=== PATIENT | female | born 1950 | race Caucasian/White ===

== ENCOUNTER → 2016-10-11 | Outpatient (CLI) | payer MEDICARE, OTHER ==
--- NOTE | 2016-10-12 14:15 | MM ---
Reason for exam: screening (asymptomatic). Last mammogram was performed 1 year ago. History: Patient is postmenopausal. Family history of breast cancer in sister at age 50 and breast cancer in 2 maternal aunts. Benign excisional biopsy of the right breast, 2005. Took hormonal contraceptives for 1 year. Physical Findings: A clinical breast exam by your physician is recommended on an annual basis and results should be correlated with mammographic findings. MG 3D Screening Mammo W/Cad Bilateral CC and MLO view(s) were taken. Prior study comparison: September 27, 2015, bilateral MG 3d screening mammo w/cad. September 07, 2014, bilateral MG diagnostic mammo w CAD DARIO. August 08, 2013, bilateral digital screening mammo w/CAD. The breast tissue is heterogeneously dense. This may lower the sensitivity of mammography. Finding: There is a 17 mm mass located 3-4 cm from the nipple in the 9 o'clock position of the left breast consistent with possible cyst. New finding since September 27, 2015, September 07, 2014, and August 08, 2013. ASSESSMENT: Incomplete: need additional imaging evaluation, BI-RAD 0 RECOMMENDATION: Ultrasound of the left breast. [facility] will attempt to contact patient to return for ultrasound.
== END | disposition home or self-care (01) ==
LOC: RADMAMWWP 07:23
PROVIDERS: ATTEND Family Medicine
DX: Z12.31 Encounter for screening mammogram for malignant neoplasm of breast (principal)
CPT/HCPCS: 77063; G0202

== ENCOUNTER → 2016-10-17 | Outpatient (CLI) | payer MEDICARE, OTHER ==
--- NOTE | 2016-10-26 13:31 | USB ---
Reason for exam: additional evaluation requested from abnormal screening. History: Patient is postmenopausal. Family history of breast cancer in sister at age 50 and breast cancer in 2 maternal aunts. Benign excisional biopsy of the right breast, 2005. Took hormonal contraceptives for 1 year. Physical Findings: Nurse did not find any significant physical abnormalities on exam. US Breast Workup LT Left breast ultrasound includes all four quadrants, the retroareolar region and axilla. Finding demonstrates a 1.3 x 0.7 x 1.1cm oval, cystic lesion at 10 o'clock, benign, larger from 10/08/15 and likely corresponding to the mammographic finding. 6 month follow up mammogram can be performed. These results were verbally communicated with the patient and result sheet given to the patient on 10/17/16. ASSESSMENT: Probably benign, BI-RAD 3 RECOMMENDATION: Follow-up diagnostic mammogram of the left breast in 6 months.
== END | disposition home or self-care (01) ==
LOC: RADUSWWP 10:09
PROVIDERS: ATTEND Family Medicine
DX: R92.8 Other abnormal and inconclusive findings on diagnostic imaging of breast (principal)

== ENCOUNTER → 2017-04-24 | Outpatient (CLI) | payer MEDICARE, OTHER ==
--- NOTE | 2017-04-24 10:22 | MM ---
Reason for exam: follow-up at short interval from prior study. Last mammogram was performed 6 months ago. History: Patient is postmenopausal. Family history of breast cancer in sister at age 50 and breast cancer in 2 maternal aunts. Benign excisional biopsy of the right breast, 2005. Took hormonal contraceptives for 1 year. Physical Findings: Nurse Summary: 1cm nodule in the right axilla (nurse mj). MG 3D Diag Mammo W/Cad LT CC and MLO view(s) were taken of the left breast. Prior study comparison: October 11, 2016, bilateral MG 3d screening mammo w/cad. September 27, 2015, bilateral MG 3d screening mammo w/cad. The breast tissue is heterogeneously dense. This may lower the sensitivity of mammography. Finding #1: There is a 17 mm round mass in the left breast. Finding #2: There are typically benign round, linear calcifications in the left breast. These results were verbally communicated with the patient and result sheet given to the patient on 04/24/17. ASSESSMENT: Incomplete: need additional imaging evaluation, BI-RAD 0 RECOMMENDATION: Ultrasound. (right) (axilla palpable by nurse)
--- NOTE | 2017-04-24 10:26 | USB ---
Reason for exam: additional evaluation requested from abnormal screening. History: Patient is postmenopausal. Family history of breast cancer in sister at age 50 and breast cancer in 2 maternal aunts. Benign excisional biopsy of the right breast, 2005. Took hormonal contraceptives for 1 year. US Breast Limited RT Right breast ultrasound demonstrates a 0.6 x 0.5 x 0.3cm lesion too small to characterize at 9 o'clock, a 0.6 x 0.5 x 0.4cm mixed lesion at 9 o'clock, a 0.7 x 0.6 x 0.5cm oval lesion too small to characterize at 9 o'clock, 1cm from nipple and a 3.0 x 2.9 x 0.8cm oval lymph node at the axilla. These results were verbally communicated with the patient and result sheet given to the patient on 04/24/17. ASSESSMENT: Probably benign, BI-RAD 3 RECOMMENDATION: Ultrasound of the right breast. Manage patient on a clinical basis. Follow-up diagnostic mammogram of both breasts in 6 months. Back on schedule for October 2017.
== END | disposition home or self-care (01) ==
LOC: RADMAMWWP 08:12
PROVIDERS: ATTEND Family Medicine
DX: N60.02 Solitary cyst of left breast (principal); R92.8 Other abnormal and inconclusive findings on diagnostic imaging of breast
CPT/HCPCS: 76642; G0206; G0279

== ENCOUNTER → 2017-06-28 | Outpatient (CLI) | payer MEDICARE ==
--- NOTE | 2017-06-29 10:01 | MM ---
Reason for exam: clinical finding. Last mammogram was performed 2 months ago. History: Patient is postmenopausal. Family history of breast cancer in sister at age 50 and breast cancer in 2 maternal aunts. Benign excisional biopsy of the right breast, 2005. Took hormonal contraceptives for 1 year. Took estrogen beginning at age 66. Took progesterone for 8 years beginning at age 38. Physical Findings: Nurse Summary: 2cm nodule in the left breast at 11-12 o'clock (nurse dw). MG 3D Diag Mammo W/Cad RT CC, MLO, and ML view(s) were taken of the right breast. Prior study comparison: April 24, 2017, left breast MG 3d diag mammo w/cad LT. October 11, 2016, bilateral MG 3d screening mammo w/cad. The breast tissue is heterogeneously dense. This may lower the sensitivity of mammography. Previous mammotome biopsy in the right breast. There is chronic nodularity in the right breast. 7mm nodular asymmetry middle depth lateral to the retorareolar plane increased in size from 10/11/16, new from older priors, located at 9 o'clock. No axillary lymphadenopathy seen. These results were verbally communicated with the patient and result sheet given to the patient on 06/28/17. ASSESSMENT: Incomplete: need additional imaging evaluation, BI-RAD 0 RECOMMENDATION: Ultrasound of both breasts. (right 9 o'clock and palpable axilla, left as ordered by clinician) [facility]
--- NOTE | 2017-06-29 10:09 | USB ---
Reason for exam: additional evaluation requested from abnormal screening. History: Patient is postmenopausal. Family history of breast cancer in sister at age 50 and breast cancer in 2 maternal aunts. Benign excisional biopsy of the right breast, 2005. Took hormonal contraceptives for 1 year. Took estrogen beginning at age 66. Took progesterone for 8 years beginning at age 38. US Breast Limited BILAT Left breast ultrasound includes all four quadrants, the retroareolar region and axilla. Finding demonstrates a 1.0 x 0.9 x 0.8cm mixed, elongated possibility intraductal lesion at 4 o'clock, a 1.8 x 1.1 x 1.7cm cystic lesion with some internal debris at 10 o'clock that corresponds to the palpable and duct ectasia at the nipple. Right breast ultrasound includes all four quadrants, the retroareolar region and axilla. Finding demonstrates a 0.8 x 0.4 x 0.5cm cystic lesion at 9 o'clock, a 0.5 x 0.5 x 0.5cm mixed lesion at 9 o'clock versus 7 x 5 x 6mm previously, no definite correlate to the mammographic finding and a 2.7 x 1.1 x 2.5cm ovoid area, suspected lymph node at the axilla versus 3.0 x 0.8 x 2.9cm on 04/24/17 for which a biopsy is recommended, axillary tissue is another possibility. These results were verbally communicated with the patient and result sheet given to the patient on 06/28/17. ASSESSMENT: Suspicious, BI-RAD 4 RECOMMENDATION: Surgical consultation and stereotactic core biopsy of the right breast. (9 o'clock) Ultrasound core biopsy of both breasts. (right axilla and left 4 o'clock) (Total 3 biopsies with the decision to biopsy all [address] Yandy Singh due to a strong family history) Called with mammographic findings and has scheduled an appointment for the patient with Dr. Hudson. Stereotactic core biopsy scheduled for 07/05/17 at 8 o'clock. Ultrasound core biopsy scheduled for PRELIMINARY REPORT CALLED AND FAXED TO DR. HUDSON ON 06/29/17. [facility]
== END | disposition home or self-care (01) ==
LOC: RADMAMWWP 13:19
PROVIDERS: ATTEND Surgery
DX: R92.8 Other abnormal and inconclusive findings on diagnostic imaging of breast (principal)
CPT/HCPCS: 77065; 76642; G0279

== ENCOUNTER → 2017-07-05 | Day surgery (SDC) | payer MEDICARE ==
[2017-07-05 07:33] VITALS: RESP 16; BMI 27.4
[2017-07-05 09:06] VITALS: BP 152/71; PULSE 57; TEMP 97.5
--- NOTE | 2017-07-05 09:39 | PCN ---
PROCEDURE NOTE This patient underwent bilateral mammogram on 04/24/2017. On the mammogram, it was noted that she had dense breast tissue. In the left breast, a 17 mm round mass was noted with typically benign round linear calcifications. Right breast mammogram was not performed at that time. This mammogram was a followup mammogram for a 6 month followup. The patient subsequently was noted to have some right axillary adenopathy and recommended to have a right axillary ultrasound. She was seen for evaluation secondary to some fullness in the right breast in June 28, 2017. At that time, on physical examination of the breast, the right breast had dense breast tissue, no masses or adenopathy of concern. The left breast, no masses or adenopathy of concern. The right axilla had a 3 x 2 cm area of nodularity against latissimus dorsi. The left axilla had no masses or adenopathy of concern. From that visit, it was recommended that she have a right breast mammogram which was performed 06/28/2017, It was noted that she had a previous mammotome biopsy of the right breast with marker in place and chronic nodularity. A 7 mm nodular asymmetric area was noted lateral to the retroareolar plane which had increased in size from 10/11/2016. No axillary adenopathy of concern was noted. The patient was recommended to have an ultrasound of the right breast and axilla. The patient on 06/28/2017, underwent ultrasound of the bilateral breast and axillas. In the left breast ultrasound was performed which revealed a 1 cm elongated possibly intraductal lesion at 4 o'clock with a 1.8 cm cystic area with some internal debris at 10 o'clock. In the right breast, all 4 quadrants in the retroareolar region and axilla, she was noted to have a 0.8 cm cystic lesion at 9 o'clock, 0.5 cm cystic lesion at 9 o'clock versus 0.7 cm cystic lesion. No definite correlate to the mammographic finding and a 2.7 cm ovoid area of suspected lymph node at the axilla for which biopsy was recommended. Thus, after the bilateral mammograms were reviewed as well as bilateral ultrasounds of the breast and the axillas, recommendations for biopsy were: Ultrasound core biopsy of the right axilla and left breast at 4 o'clock and a stereotactic core biopsy of the right breast at 9 o'clock. These films were reviewed with the radiologist and physical examination of the breast was as stated. Risks and benefits of the procedures were discussed with the patient including risks of bleeding, infection, reaction to the anesthetic, risk of not sampling the correct area and the possibility that if any atypia or abnormalities of concern were found, that the patient may need to undergo surgical intervention. The alternative to core biopsies were discussed with the patient, which would be needle localization and excisional biopsy. PROCEDURE: After the above have been discussed with the patient, the patient was scheduled for stereotactic core biopsy of the right breast. The indication was a nodular area of concern in the right breast, which had increased in size from prior radiographs. The location in the breast was in the middle depth lateral to the retromolar plane at 9 o'clock. The approach used was a CC from below. The patient was placed on the stereo table. The area of concern was identified. The breast was then prepped using Betadine; 1% lidocaine with bicarb was used to anesthetize the area of concern. A 9 mm vacuum assisted needle was used and driven to the correct coordinates. Prefire films were obtained and reviewed with Radiology and the area of concern was felt to be that it would be targeted at this location once the postfire needle was in the correct location. The needle was fired and postfire films were obtained. It was felt that sampling from 2 o'clock to 9 o'clock through the 6 o'clock position would give us an adequate sample. The sampling was obtained. Following this, there were no calcifications such that the specimen was not radiographed; however, evaluation of the specimen revealed that there were some firm areas of specimen in the biopsy contents and it was felt that the area had been adequately sampled. Following this, a marker was placed. The position of the marker was documented. This was a secure raul. The stereo apparatus was removed and the secure raul was inserted and placed at the correct location. The followup plan is for the patient to follow with Dr. Hudson in 1 week. It should be noted that the patient is going to undergo ultrasound-guided core biopsy of the right axilla and the left breast tomorrow and then will follow with Dr. Rice with all the pathology results. MMODL / IJN: [id number] /
--- NOTE | 2017-07-05 22:21 | MM ---
EXAMINATION TYPE: MG stereo VAD BX RT DATE OF EXAM: 07/05/2017 COMPARISON: NONE CLINICAL HISTORY: Abnormal mammogram TECHNIQUE: Stereotactic guided core biopsy of right breast. FINDINGS: The procedure of stereotactic guided core biopsy was explained to the patient. Benefits, alternatives, and risks were discussed. An informed consent was then obtained. The shortness pathway for biopsy was chosen. Shortness pathway was inferior approach. Radiology performed the localization. The procedure was performed by Dr. Dwayne Singh. A vacuum assisted biopsy gun was used to obtain multiple core samples. The patient was kept in the radiology department for short stay after the procedure and then discharged home in stable condition. Post biopsy mammogram shows the clip to appear in satisfactory position relative to the targeted area of concern on the preprocedure images. IMPRESSION: 1. Successful stereotactic core biopsy mass within the right breast. Recommendations: 1. Recommendations are pending pathology results. Pathology Results: Benign BREAST, RIGHT SITE A, STEREOTACTIC CORE BIOPSY: FIBROCYSTIC CHANGE (STROMAL FIBROSIS, CYST FORMATION, APOCRINE METAPLASIA, ADENOSIS, DUCT HYPERPLASIA AND CALCIFICATIONS). Recommendation Follow up mammogram of the right breast and bilateral ultrasound in 6 months. (right for palpable, left for 4 o'clock) [facility]
== END ==
LOC: RADMAMWWP 07:00
PROVIDERS: ATTEND Surgery
DX: N60.31 Fibrosclerosis of right breast (principal); N60.81 Other benign mammary dysplasias of right breast; N60.21 Fibroadenosis of right breast; N60.91 Unspecified benign mammary dysplasia of right breast; R92.1 Mammographic calcification found on diagnostic imaging of breast; Z85.3 Personal history of malignant neoplasm of breast
CPT/HCPCS: 88305; 19081; A4648; J2001

== ENCOUNTER → 2017-07-06 | Day surgery (SDC) | payer MEDICARE ==
--- NOTE | 2017-07-06 11:57 | MM ---
Reason for exam: additional evaluation requested from abnormal screening. Last mammogram was performed less than 1 month ago. History: Patient is postmenopausal. Family history of breast cancer in sister at age 50 and breast cancer in 2 maternal aunts. Benign excisional biopsy of the right breast, 2005. Took hormonal contraceptives for 1 year. Took estrogen beginning at age 66. Took progesterone for 8 years beginning at age 38. MG Diagnostic Mammo LT Wo CAD CC and LM view(s) were taken of the left breast. Prior study comparison: June 28, 2017, right breast MG 3d diag mammo w/cad RT. April 24, 2017, left breast MG 3d diag mammo w/cad LT. ASSESSMENT: Post procedure mammogram for marker placement RECOMMENDATION: Ultrasound of the left breast in 6 months. PENDING PATHOLOGY RESULTS.
[2017-07-06 13:42] VITALS: BP 133/76; PULSE 60; RESP 18; TEMP 97.5; BMI 27.6
--- NOTE | 2017-07-09 10:42 | USB ---
EXAMINATION TYPE: US biopsy breast VAD LT, US discontinued breast bx RT, MG diagnostic mammo LT wo CAD DATE OF EXAM: 07/06/2017 CLINICAL HISTORY: R92.8 Abnormal mammo. Abnormal ultrasound TECHNIQUE: Ultrasound guided core biopsy of left breast with clip placement and follow-up two-view mammogram. COMPARISON: Prior ultrasound and mammogram reports. FINDINGS: Exam noted suboptimal as at time of dictation prior images were not available for direct comparison due to PACS error. The procedure of ultrasound guided core biopsy was explained to the patient. Benefits, alternatives, and risks were discussed. An informed consent was then obtained. The patient was placed in supine positioning for imaging and for the procedure. Preprocedure scanning of right axilla showed prominent tissue but no obvious worrisome mass. Preprocedure images showed elongated hypoechoic lesion with central anechoic area 4:00 position zone a left breast. The overlying skin was prepped and draped in usual sterile fashion. Lidocaine buffered with bicarbonate was used as anesthetic into the skin. Lidocaine with epinephrine is used as anesthetic into the deeper tissue up to area of concern in the left breast. Under ultrasound guidance, a 12-gauge vacuum assisted biopsy gun device was used to obtain 4 core samples. Following this, a biopsy clip was left in lesion. The patient tolerated the procedure well without any immediate complication. The patient was kept in the radiology department for short stay after the procedure and then discharged home in stable condition. Postprocedure mammogram shows successful deployment of clip. IMPRESSION: Successful, uncomplicated ultrasound guided core biopsy of area of concern in the left breast, full pathology results to follow. Low to intermediate index of suspicion noted at time of procedure. Pathology Results: Benign BREAST, LEFT, CORE BIOPSY: FIBROCYSTIC CHANGES INCLUDING FIBROSIS, CYSTS, APOCRINE METAPLASIA, ADENOSIS AND MILD USUAL TYPE DUCTAL HYPERPLASIA. PSEUDOANGIOMATOUS STROMAL HYPERPLASIA (PASH). Recommendation Follow up ultrasound of both breasts in 6 months. (right for palpable axillary, left for 4 o'clock) [facility]
== END ==
LOC: RADUSWWP 08:52
PROVIDERS: ATTEND Surgery
DX: N60.32 Fibrosclerosis of left breast (principal); N60.82 Other benign mammary dysplasias of left breast; N60.22 Fibroadenosis of left breast; N60.92 Unspecified benign mammary dysplasia of left breast; N62 Hypertrophy of breast; Z78.0 Asymptomatic menopausal state; Z80.3 Family history of malignant neoplasm of breast; Z98.890 Other specified postprocedural states
CPT/HCPCS: 88305; 77065; 19083; 76641; A4648; J2001

== ENCOUNTER → 2017-07-23 | Outpatient (CLI) | payer MEDICARE ==
--- NOTE | 2017-07-24 06:53 | US ---
EXAMINATION TYPE: US kidneys/renal and bladder DATE OF EXAM: 07/23/2017 COMPARISON: Renal ultrasound March 18, 2015. CLINICAL HISTORY: N39.0 Frequent, recurring urinary tract infection. Frequent, recurrent UTI's EXAM MEASUREMENTS: Right Kidney: 9.6 x 4.6 x 5.2 cm Left Kidney: 9.0 x 5.1 x 3.7 cm Right Kidney: no evidence of hydronephrosis or mass Left Kidney: no evidence of hydronephrosis or mass Bladder: appears wnl Bilateral Jets seen: yes There is no evidence for hydronephrosis at this point in time. No nephrolithiasis is seen. No fabi s are identified. The urinary bladder is anechoic. Bilateral ureteral jets are seen. IMPRESSION: Unremarkable study.
== END | disposition home or self-care (01) ==
LOC: RADUSWWP 16:10
PROVIDERS: ATTEND Urology
DX: N39.0 Urinary tract infection, site not specified (principal); Z88.2 Allergy status to sulfonamides
CPT/HCPCS: 76770

== ENCOUNTER → 2017-12-27 | Outpatient (CLI) | payer MEDICARE ==
--- NOTE | 2017-12-27 10:39 | MM ---
Reason for exam: additional evaluation requested from prior study. Last mammogram was performed 6 months ago. History: Patient is postmenopausal. Family history of breast cancer in sister at age 50 and breast cancer in 2 maternal aunts. Benign US biopsy breast VAD LT of the left breast, July 06, 2017. US discontinued breast bx RT of the right breast, July 06, 2017. Benign MG stereo VAD BX RT of the right breast, July 05, 2017. Benign excisional biopsy of the right breast, 2005. Took hormonal contraceptives for 1 year. Took estrogen beginning at age 66. Took progesterone for 8 years beginning at age 38. Physical Findings: Nurse Summary: 2cm adenopathy in the right axilla (nurse ts). MG 3D Diag Mammo W/Cad DARIO Bilateral CC and MLO view(s) were taken. Prior study comparison: July 06, 2017, left breast MG diagnostic mammo LT wo CAD. June 28, 2017, right breast MG 3d diag mammo w/cad RT. The breast tissue is heterogeneously dense. This may lower the sensitivity of mammography. There are similar appearing bilateral masses characterized with ultrasound the same day. Biopsy markers and post biopsy change noted. These results were verbally communicated with the patient and result sheet given to the patient on 12/27/17. ASSESSMENT: Probably benign, BI-RAD 3 RECOMMENDATION: Ultrasound of the left breast in 6 months.
--- NOTE | 2017-12-27 10:45 | USB ---
Reason for exam: follow-up at short interval from prior study. History: Patient is postmenopausal. Family history of breast cancer in sister at age 50 and breast cancer in 2 maternal aunts. Benign US biopsy breast VAD LT of the left breast, July 06, 2017. US discontinued breast bx RT of the right breast, July 06, 2017. Benign MG stereo VAD BX RT of the right breast, July 05, 2017. Benign excisional biopsy of the right breast, 2005. Took hormonal contraceptives for 1 year. Took estrogen beginning at age 66. Took progesterone for 8 years beginning at age 38. US Breast BILAT Technologist: Mellisa Rodríguez, RT (R)(M) Right complete breast ultrasound includes all four quadrants, the retroareolar region and axilla. Finding demonstrates a 6mm oval cyst and 3mm oval cyst at 9 o'clock, benign, and a 30 x 10 x 29mm echogenic lesion at axilla at BB, irregular hilum, firm on palpation for which a biopsy is recommended. Left complete breast ultrasound includes all four quadrants, the retroareolar region and axilla. Finding demonstrates a 8 x 4 x 10mm irregular, hypoechoic, solid lesion at 11/12 o'clock, a 5 x 4 x 4mm mixed lesion at 12 o'clock, a 4 x 4 x 6mm solid, hypoechoic lesion at 1 o'clock, a 4 x 3 x 3mm hypoechoic lesion at 3 o'clock and left posterior nipple prominent ducts. 6 month follow up recommended. These results were verbally communicated with the patient and result sheet given to the patient on 12/27/17. ASSESSMENT: Suspicious, BI-RAD 4 RECOMMENDATION: Ultrasound core biopsy of the right breast. (axilla) Called with mammographic findings and has scheduled an appointment for the patient for 12/28/17 at 12:[address] Zheng. Biopsy scheduled for 01/01/18 at 2:20. PRELIMINARY REPORT CALLED AND FAXED TO DR. ZHENG ON 12/27/17.
== END | disposition home or self-care (01) ==
LOC: RADMAMWWP 08:36
PROVIDERS: ATTEND Surgery
DX: R92.8 Other abnormal and inconclusive findings on diagnostic imaging of breast (principal)
CPT/HCPCS: 77066; 76641; G0279; 77062

== ENCOUNTER → 2017-12-28 | Outpatient (CLI) | payer MEDICARE ==
[2017-12-28 13:11] VITALS: BP 172/77; PULSE 62; BMI 27.4
--- NOTE | 2017-12-28 13:39 | P.GSHP ---
History of Present Illness H&P Date: 12/28/17 Patient is a 67 year old white female status post biopsies of right and left breast in June 2017. These were done stereotactically. She had bilateral mammograms and ultrasounds performed yesterday after which core biopsy of an area in the right axilla was recommended. The patient is noted to have an area of fullness under her right arm. This was present in the past however it was opted at that time to follow conservatively after review by radiology. The patient states this has not increased in size. There are no other masses or lumps in her breasts. The patient has no history of trauma. No history of infection to the breast. Family History: 1. 3 maternal aunts breast cancer, (youngest diagnosed at 80) 2. sister: breast cancer at about 50 3. brother: leukemia Past surgical history: 1. Hysterectomy secondary to dropped bladder 2. arthroscopic surgery left knee Past medical history: 1. Frequent urinary tract infections Hormonal history: Menarche: 11 Pregnancies: 2, 2 live births, patient did not breast-feed Menopause: 48 due to hysterectomy BCP: 2 years Hormones: 1 year not now Social History: smoke: started at 17 1 pack/4 days, now smoke occasional Heart: Occasional, monthly Drugs: Negative - Constitutional Constitutional: Denies chills, Denies fever - EENT Eyes: denies decreased vision, denies pain Ears: deny: decreased hearing, tinnitus Ears, nose, mouth and throat: Denies headache, Denies sore throat - Breasts Breasts: bilateral: as per HPI - Cardiovascular Cardiovascular: Denies chest pain, Denies shortness of breath - Respiratory Respiratory: Denies cough, Denies 7 - Gastrointestinal Gastrointestinal: Denies abdominal pain, Denies diarrhea, Denies nausea, Denies vomiting - Genitourinary (Female) Comment: frequant UTI follows with DR. Martinez - Menstruation Menstruation: Reports post hysterectomy - Musculoskeletal Comment: arthritis - Integumentary Integumentary: Denies pruritus, Denies rash - Neurological Neurological: Denies numbness, Denies weakness - Psychiatric Psychiatric: Denies anxiety, Denies depression - Endocrine Endocrine: Denies fatigue, Denies weight change - Hematologic/Lymphatic Comment: Aspirin 81 mg - Allergic/Immunologic Allergic/Immunologic: Reports seasonal allergies Past Medical History Past Medical History: GERD/Reflux, Hypertension, Osteoarthritis (OA), Thyroid Disorder Additional Past Medical History / Comment(s): torn cartlage lt knee,varicose vein-laser procedures completed,2012 underactive kidneys, uti's History of Any Multi-Drug Resistant Organisms: None Reported, ESBL Date of last positivie culture/infection: 12/17/17 MDRO Source:: ESBL URINE Past Surgical History: Hysterectomy, Orthopedic Surgery Additional Past Surgical History / Comment(s): Knee surgery in 2016 Past Anesthesia/Blood Transfusion Reactions: No Reported Reaction Past Psychological History: No Psychological Hx Reported Smoking Status: Current every day smoker Past Alcohol Use History: Occasional Past Drug Use History: None Reported Additional Drug Use History / Comment(s): started smoking 1979-stopped 1997 - Past Family History Mother Family Medical History: Diabetes Mellitus Additional Family Medical History / Comment(s): Tom's Father Family Medical History: Diabetes Mellitus Additional Family Medical History / Comment(s): heart problems Medications and Allergies Home Medications Medication Instructions Recorded Confirmed Type Hydrochlorothiazide 25 mg PO DAILY 11/04/15 12/27/17 History L.acidoph,Paracasei, B.lactis 1 each PO DAILY 11/04/15 12/27/17 History [Probiotic] Levothyroxine Sodium [Levoxyl] 175 mcg PO QAM 11/04/15 12/27/17 History Metoprolol Succinate [Toprol XL] 100 mg PO QAM 11/04/15 12/27/17 History Omeprazole [PriLOSEC] 20 mg PO QAM 11/04/15 12/27/17 History Cholecalciferol (Vitamin D3) 2 tab PO DAILY 07/02/17 12/27/17 History [Vitamin D3] Citalopram Hydrobromide [CeleXA] 40 mg PO DAILY 07/02/17 12/27/17 History amLODIPine BESYLATE [Norvasc] 1 each PO DAILY 07/02/17 12/27/17 History Allergies Allergy/AdvReac Type Severity Reaction Status Date / Time Sulfa (Sulfonamide Allergy Mild Rash/Hives Verified 12/27/17 10:38 Antibiotics) Surgical - Exam Vital Signs Pulse BP Pulse Ox 62 172/77 98 12/28/17 13:04 12/28/17 13:04 12/28/17 13:04 - General well developed, well nourished, no distress - Eyes normal ocular movement, no icteric - ENT no hearing loss, no congestion - Neck no masses, trachea midline - Respiratory normal respiratory effort, clear to auscultation - Cardiovascular Rhythm: regular Heart Sounds: normal: S1, S2 - Abdomen Abdomen: soft, non tender, no guarding, no rigid, no rebound - Neurologic no disoriented, no combative - Musculoskeletal normal gait, normal posture - Psychiatric oriented to time, oriented to person, oriented to place, speech is normal, memory intact Breast examination: Right breast: Multi-positional exam no dominant masses or nodules of concern Right axilla: Area of increased fullness in the axillary region this is seen on ultrasound as well and biopsy to be performed Left breast: Multi-positional exam no dominant masses or nodules of concern Left axilla: No adenopathy of concern Results Reports of mammogram and ultrasound reviewed Assessment and Plan Assessment: Impression/plan: 1. Bilateral fibrocystic breast changes 2. Right axillary fullness ultrasound core biopsy to be obtained 3. Hypothyroid Plan: 1. Core biopsy of right axillary fullness 2. Follow-up 1 week after core biopsy performed 3. Medical management of medical problems CC: Dr. Isabel Bourgeois
== END ==
LOC: WWCWWP 12:40
PROVIDERS: ATTEND Surgery
DX: Z53.9 Procedure and treatment not carried out, unspecified reason (principal)

== ENCOUNTER → 2018-01-01 | Day surgery (SDC) | payer MEDICARE ==
[2018-01-01 13:13] VITALS: RESP 16; BMI 27.4
[2018-01-01 15:15] VITALS: BP 147/71; PULSE 59; TEMP 97.8
--- NOTE | 2018-01-01 16:27 | USB ---
EXAMINATION TYPE: US breast needle core RT DATE OF EXAM: 01/01/2018 COMPARISON: NONE CLINICAL HISTORY: Palpable lump right axilla R22.9. FINDINGS: The procedure of ultrasound guided core biopsy was explained to the patient. Benefits, alt ernatives, and risks were discussed. An informed consent was then obtained. Preprocedural timeout w as performed. The patient was placed in supine positioning for imaging and for the procedure. The overlying skin wa s prepped and draped in usual sterile fashion. 10 cc of lidocaine buffered with bicarbonate was used as anesthetic into the skin and right breast. Under ultrasound guidance, a 14-gauge [employer] biopsy gun device was used to obtain 5 core samples. Fol lowing this, a hydromark biopsy marker was left in lesion. The patient tolerated the procedure well without any immediate complication. Postprocedural The patie nt was kept in the radiology department for short stay after the procedure and then discharged home i n stable condition. IMPRESSION: Successful, uncomplicated ultrasound guided core biopsy of area of concern in the right b reast, full pathology results to follow.
== END | disposition home or self-care (01) ==
LOC: RADUSWWP 12:43
PROVIDERS: ATTEND Surgery
DX: N64.1 Fat necrosis of breast (principal)
CPT/HCPCS: 19083; A4648; J2001; 88305

== ENCOUNTER → 2018-01-10 | Outpatient (CLI) | payer MEDICARE ==
[2018-01-10 08:35] VITALS: BP 156/72; PULSE 62; BMI 27.4
--- NOTE | 2018-01-10 10:03 | P.GSHP ---
History of Present Illness H&P Date: 01/10/18 The patient is a 67-year-old white female who is status post bilateral stereotactic breast biopsies approximately 6 months ago for mammographic abnormalities. These lesions were benign. The patient at that time was noted to have a fullness in her right axilla and initially we were going to proceed with a right axillary core biopsy after which as per the radiologist it was felt we would wait and follow the area in 6 months. The area did not decrease in size and repeat ultrasound there was concern that this may represent something more worrisome and an ultrasound core biopsy was recommended. Ultrasound core biopsy revealed a 3 x 2.9 cm echogenic lesion in the axilla with an irregular hilum. The biopsy results were consistent with benign fibroadipose tissue and skeletal muscle with focal fat necrosis. The patient states that the area is worrisome to her. The area is uncomfortable and she feels a fullness under her arm. And the patient is very concerned and wishes this to be removed. At this time the patient states that she believes this has increased in size as well. Family history: 1. Sister breast cancer at 50 2. 3 maternal aunts with breast cancer all postmenopausal 3. Brother: Leukemia Menarche: 11 pregnancys: 2, 2 children breast fed none, first at 19 menopause: 43 BCP: 2 years hormones: 2 years not used for about 20 years Social history: smoke: occasional alcohol: social drugs: none Past surgical history: 1. Hysterectomy 2. Left knee surgery Past medical history: 1. Hypothyroidism 2. High cholesterol 3. Hypertension - Constitutional Constitutional: Denies chills, Denies fever - EENT Eyes: denies blurred vision, denies pain Ears: deny: decreased hearing, tinnitus Ears, nose, mouth and throat: Denies headache, Denies sore throat - Breasts Breasts: bilateral: as per HPI - Cardiovascular Cardiovascular: Denies chest pain, Denies shortness of breath - Respiratory Respiratory: Denies cough, Denies 7 - Gastrointestinal Comment: GERD Gastrointestinal: Denies abdominal pain, Denies diarrhea, Denies nausea, Denies vomiting - Genitourinary (Female) Comment: UTI followed by urology - Menstruation Menstruation: Reports post hysterectomy - Musculoskeletal Comment: arthritis in knees - Integumentary Integumentary: Denies pruritus, Denies rash - Neurological Neurological: Denies numbness, Denies weakness - Psychiatric Psychiatric: Reports depression, Reports difficulty concentrating, Denies anxiety - Endocrine Comment: hyperthyroid, had radioactive ablation and now takes Synthroid - Hematologic/Lymphatic Comment: Baby aspirin - Allergic/Immunologic Comment: sulfa Past Medical History Past Medical History: GERD/Reflux, Hypertension, Osteoarthritis (OA), Thyroid Disorder Additional Past Medical History / Comment(s): torn cartlage lt knee,varicose vein-laser procedures completed,2012 underactive kidneys, uti's History of Any Multi-Drug Resistant Organisms: None Reported, ESBL Date of last positivie culture/infection: 12/17/17 MDRO Source:: ESBL URINE Past Surgical History: Hysterectomy, Orthopedic Surgery Additional Past Surgical History / Comment(s): Knee surgery in 2016 Past Anesthesia/Blood Transfusion Reactions: No Reported Reaction Past Psychological History: No Psychological Hx Reported Smoking Status: Current some day smoker Past Alcohol Use History: Occasional Past Drug Use History: None Reported Additional Drug Use History / Comment(s): started smoking 1979-stopped 1997 - Past Family History Mother Family Medical History: Diabetes Mellitus Additional Family Medical History / Comment(s): Tom's Father Family Medical History: Diabetes Mellitus Additional Family Medical History / Comment(s): heart problems Medications and Allergies Home Medications Medication Instructions Recorded Confirmed Type Hydrochlorothiazide 25 mg PO DAILY 11/04/15 01/10/18 History L.acidoph,Travisi B.lactis 1 each PO DAILY 11/04/15 01/10/18 History [Probiotic] Levothyroxine Sodium [Levoxyl] 175 mcg PO QAM 11/04/15 01/10/18 History Metoprolol Succinate [Toprol XL] 100 mg PO QAM 11/04/15 01/10/18 History Omeprazole [PriLOSEC] 20 mg PO QAM 11/04/15 01/10/18 History Cholecalciferol (Vitamin D3) 2 tab PO DAILY 07/02/17 01/10/18 History [Vitamin D3] Citalopram Hydrobromide [CeleXA] 40 mg PO DAILY 07/02/17 01/10/18 History amLODIPine BESYLATE [Norvasc] 1 each PO DAILY 07/02/17 01/10/18 History Aspirin [Adult Low Dose Aspirin EC] 81 mg PO DAILY 01/01/18 01/10/18 History Allergies Allergy/AdvReac Type Severity Reaction Status Date / Time Sulfa (Sulfonamide Allergy Mild Rash/Hives Verified 01/01/18 13:00 Antibiotics) Surgical - Exam Vital Signs Pulse BP Pulse Ox 62 156/72 99 01/10/18 08:29 01/10/18 08:29 01/10/18 08:29 - General well developed, well nourished, no distress - Eyes normal ocular movement, no icteric - ENT no hearing loss, no congestion - Neck no masses, trachea midline - Respiratory normal respiratory effort, clear to auscultation - Cardiovascular Rhythm: regular Heart Sounds: normal: S1, S2 - Abdomen Abdomen: soft, non tender, no guarding, no rigid, no rebound - Neurologic no disoriented, no combative - Musculoskeletal normal gait - Psychiatric oriented to time, oriented to person, oriented to place, speech is normal, memory intact Breast examination: Right breast: Multiple positional exam no dominant masses or nodules of concern Right axilla: Increased fullness in the right axilla approximately 3 x 3 cm in size Left breast: Multiple positional exam no dominant mass or nodules of concern Left axilla: No adenopathy of concern Results Pathology and ultrasound of right axilla reviewed Assessment and Plan Assessment: Impression/plan: 1. Right axillary mass probable lipoma based on core biopsy 2. Status post bilateral mammographic abnormalities with stereotactic biopsy results benign 3. Family history of breast cancer 4. Hypothyroidism 5. GERD 6. Arthritis in the knee Plan: 1. After conversation with the patient the right axillary mass has most likely increased in size and is worrisome to the patient. It is uncomfortable and of concern secondary to her famly history of breast cancer, she wishes this to be excised 2. Medical management of medical conditions Risk and benefit Risk and benefits of operative resection of the right axillary mass of been discussed with the patient. She wishes to proceed seen and this will be scheduled in the near future. We have also discussed the possibility of intraoperative pathologic evaluation if this were to be positive the axillary node dissection. Its of this have been discussed with the patient as well. Cc: Dr. Bourgeois
== END | disposition home or self-care (01) ==
LOC: WWCWWP 08:17
PROVIDERS: ATTEND Surgery
DX: Z53.9 Procedure and treatment not carried out, unspecified reason (principal)

== ENCOUNTER 2018-01-15 12:11 | Day surgery (SDC) | payer MEDICARE ==
[2018-01-10 14:09] VITALS: BMI 27.4
[~2018-01-15 12:11] MED LIST: DEXAMETHASONE SOD PHOSPHATE 10 MG/ML 1 ML VIAL IV ONE; HEPARIN SODIUM,PORCINE 5,000 UNIT/ML 1 ML VIAL SQ ONE; MIDAZOLAM 2 MG/2 ML VIAL IV PRN; ONDANSETRON 4 MG/2 ML VIAL IVP ONE; Pre Op ABX Message 1 EACH MISC MISCELLANE ONE; fentaNYL (PF) 50 MCG/ML 2 ML AMP IV PRN
[2018-01-15] MEDS ORDERED: LIDOCAINE 1% 20 ML VIAL (10MG/ML) FOR IV START INTRADERMA ONE (13:00)
[2018-01-15] MEDS: LACTATED RINGERS 1,000 ML IV SCH ×2 (13:01→14:50)
[2018-01-15] MEDS ORDERED: HEPARIN SODIUM,PORCINE 5,000 UNIT/ML 1 ML VIAL SQ ONE (13:43)
[2018-01-15] MEDS ORDERED: SUCCINYLCHOLINE CHLORIDE 100 MG/5 ML SYR IV ONE (14:11)
[2018-01-15] MEDS ORDERED: LIDOCAINE 1% INJ 10MG/ML (20 ML MDV) ONE (14:11)
[2018-01-15] MEDS ORDERED: MIDAZOLAM 2 MG/2 ML VIAL ONE (14:11)
[2018-01-15] MEDS ORDERED: fentaNYL (PF) 50 MCG/ML 2 ML AMP ONE (14:11)
[2018-01-15] MEDS ORDERED: PROPOFOL 10 MG/ML 20 ML VIAL IV ONE (14:11)
--- NOTE | 2018-01-15 14:56 | P.OP ---
Date of Procedure: 01/15/18 Preoperative Diagnosis: Mass right axilla Postoperative Diagnosis: Lipoma right axilla Procedure(s) Performed: Excision of soft tissue mass right axilla Anesthesia: KHANH Surgeon: Mag Hudson Estimated Blood Loss (ml): 5 IV fluids (ml): 700 Pathology: other (Soft tissue mass right axilla) Condition: stable Disposition: PACU Indications for Procedure: Enlarging soft tissue mass right axilla Operative Findings: Probable lipoma right axilla Description of Procedure: The patient was taken to the operating room and following induction of general anesthesia the right breast and axilla were prepped and draped in a sterile fashion. An incision was made over the area of palpable abnormality. It appeared that this was an intramuscular soft tissue mass. Upon opening the fibers of the muscle a lipomatous like lesion extruded from the area. This was approximately 4 x 3 cm in size. This was removed using the Harmonic scalpel. Following this after assured that hemostasis was attained the deep tissues were closed with a 3-0 Vicryl suture. The skin was closed with 4-0 Monocryl. All instrument and sponge counts were correct at the end of the case. The patient tolerated the procedure in stable condition.
--- NOTE | 2018-01-15 14:58 | P.DS ---
Providers Attending physician: Mag Hudson Primary care physician: Baldemar Bourgeois Plan - Discharge Summary New Discharge Prescriptions: No Action Levothyroxine Sodium [Levoxyl] 175 mcg PO QAM Hydrochlorothiazide 25 mg PO DAILY Metoprolol Succinate [Toprol XL] 100 mg PO QAM L.acidoph,Paracasei, B.lactis [Probiotic] 1 each PO DAILY Omeprazole [PriLOSEC] 20 mg PO QAM Cholecalciferol (Vitamin D3) [Vitamin D3] 4,000 tab PO DAILY Citalopram Hydrobromide [CeleXA] 40 mg PO QAM amLODIPine BESYLATE [Norvasc] 5 mg PO QAM Aspirin [Adult Low Dose Aspirin EC] 81 mg PO HS Atorvastatin Calcium [Lipitor] 40 mg PO HS Discharge Medication List Hydrochlorothiazide 25 mg PO DAILY 11/04/15 [History] L.acidoph,Paracasei, B.lactis [Probiotic] 1 each PO DAILY 11/04/15 [History] Levothyroxine Sodium [Levoxyl] 175 mcg PO QAM 11/04/15 [History] Metoprolol Succinate [Toprol XL] 100 mg PO QAM 11/04/15 [History] Omeprazole [PriLOSEC] 20 mg PO QAM 11/04/15 [History] Cholecalciferol (Vitamin D3) [Vitamin D3] 4,000 tab PO DAILY 07/02/17 [History] Citalopram Hydrobromide [CeleXA] 40 mg PO QAM 07/02/17 [History] amLODIPine BESYLATE [Norvasc] 5 mg PO QAM 07/02/17 [History] Aspirin [Adult Low Dose Aspirin EC] 81 mg PO HS 01/01/18 [History] Atorvastatin Calcium [Lipitor] 40 mg PO HS 01/10/18 [History] Follow up Appointment(s)/Referral(s): Mag Hudson MD [STAFF PHYSICIAN] - 1 Week Activity/Diet/Wound Care/Special Instructions: Do not drive today Discharge Disposition: HOME SELF-CARE
[2018-01-15 15:19] VITALS: TEMP 97.3
[2018-01-15 15:30] VITALS: RESP 16
[2018-01-15 17:04] VITALS: BP 128/66; PULSE 68
== END 2018-01-15 17:19 | disposition home or self-care (01) ==
LOC: OR 12:11
PROVIDERS: ATTEND Surgery
DX: D17.9 Benign lipomatous neoplasm, unspecified (principal); M79.89 Other specified soft tissue disorders; I10 Essential (primary) hypertension; E78.5 Hyperlipidemia, unspecified; Z72.0 Tobacco use; E07.9 Disorder of thyroid, unspecified; F39 Unspecified mood [affective] disorder; K21.9 Gastro-esophageal reflux disease without esophagitis; Z79.890 Hormone replacement therapy; Z79.899 Other long term (current) drug therapy; Z79.82 Long term (current) use of aspirin; Z88.2 Allergy status to sulfonamides; Z80.3 Family history of malignant neoplasm of breast; Z80.6 Family history of leukemia; E03.9 Hypothyroidism, unspecified; E78.00 Pure hypercholesterolemia, unspecified
CPT/HCPCS: 88304; J2250; J1644; J1100; J2405; J2001; J3010; J0330; J2704

== ENCOUNTER → 2018-07-30 | Outpatient (CLI) | payer MEDICARE ==
--- NOTE | 2018-07-30 09:48 | MM ---
Reason for exam: follow-up at short interval from prior study. Last mammogram was performed 7 months ago. History: Patient is postmenopausal. Family history of breast cancer in sister at age 50 and breast cancer in 2 maternal aunts. Benign US breast needle core RT of the right breast, January 01, 2018. Benign US biopsy breast VAD LT of the left breast, July 06, 2017. US discontinued breast bx RT of the right breast, July 06, 2017. Benign MG stereo VAD BX RT of the right breast, July 05, 2017. Benign excisional biopsy of the right breast, 2005. Took hormonal contraceptives for 1 year. Took estrogen beginning at age 66. Took progesterone for 8 years beginning at age 38. Physical Findings: Nurse did not find any significant physical abnormalities on exam. MG 3D Diag Mammo W/Cad DARIO Bilateral CC and MLO view(s) were taken. Prior study comparison: December 27, 2017, bilateral MG 3d diag mammo w/cad DARIO. July 06, 2017, left breast MG diagnostic mammo LT wo CAD. September 27, 2015, bilateral MG 3d screening mammo w/cad. The breast tissue is heterogeneously dense. This may lower the sensitivity of mammography. No suspicious abnormality. Bilateral biopsy markers noted. These results were verbally communicated with the patient and result sheet given to the patient on 07/30/18. ASSESSMENT: Benign, BI-RAD 2 RECOMMENDATION: Routine screening mammogram of both breasts in 1 year.
== END | disposition home or self-care (01) ==
LOC: RADMAMWWP 08:47
PROVIDERS: ATTEND Surgery
DX: R92.8 Other abnormal and inconclusive findings on diagnostic imaging of breast (principal)
CPT/HCPCS: 77066; G0279; 77062

== ENCOUNTER → 2018-08-08 | Outpatient (CLI) | payer MEDICARE ==
[2018-08-08 09:02] VITALS: BP 161/71; PULSE 85; RESP 16; TEMP 97.3; BMI 27.1
--- NOTE | 2018-08-08 09:36 | P.GSHP ---
History of Present Illness H&P Date: 08/08/18 Chief Complaint: Fibrocystic breast changes Swati is a 67-year-old white female who is status post bilateral stereotactic breast biopsies approximately 1 year ago. These lesions were benign. The patient however was then noted to have a fullness in her right axilla and initially the going to proceed with a right axillary core biopsy. However radiology felt this area could be watched and followed. The area did not decrease in size and repeat ultrasound showed concern that there may be something more worrisome in the axilla and ultrasound core biopsy was performed. The biopsy results were consistent with benign fibroadipose tissue and skeletal muscle with focal fat necrosis. The patient was concerned and we went to the operating room and remove this area. 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 The patient is doing well at this time with no new lumps or masses noted. Her most recent mammogram was a bilateral mammogram performed . This was felt to show heterogeneously dense breast tissue was benign BIRADS 2 with routine screening recommended in 1 year. Vivian Risk Evaluation: 5 year risk 3.9%, lifetime risk 11.6 % There was also been discussed with the patient and at this time she is not interested in genetic counseling nor chemoprevention. Family history: 1. sister breast cancer at 50 2. 3 maternal aunts with breast cancer all postmenopausal 3. Brother: Leukemia Menarche: 11 Pregnancies: 2, 2 children did not breast-feed first live at 19 Menopause: 43 Visit control pills: 2 years Hormones: 2 years not used for approximately 20 years Social history: Smoke: Occasional Alcohol: Social Drugs: Negative Past surgical history: 1. Hysterectomy 2. Left knee surgery Past medical history: 1. Hypothyroidism 2. High cholesterol 3. Hypertension - Constitutional Constitutional: Denies chills, Denies fever - EENT Eyes: bilateral dry eye, denies blurred vision, denies pain Ears: deny: decreased hearing, tinnitus Ears, nose, mouth and throat: Denies headache, Denies sore throat - Breasts Breasts: bilateral: as per HPI - Cardiovascular Comment: ? heart murmur Cardiovascular: Reports high blood pressure, Denies chest pain, Denies shortness of breath - Respiratory Respiratory: Denies cough, Denies 7 - Gastrointestinal Comment: GERD Gastrointestinal: Denies abdominal pain, Denies diarrhea, Denies nausea, Denies vomiting - Genitourinary (Female) Comment: bladder infection in the past now on an antibiotic and no longer a problem Genitourinary: Denies dysuria, Denies hematuria - Menstruation Comment: still has ovaries Menstruation: Reports post hysterectomy - Musculoskeletal Comment: arthritis in her knees - Integumentary Integumentary: Denies pruritus, Denies rash - Neurological Neurological: Denies numbness, Denies weakness - Psychiatric Psychiatric: Denies anxiety, Denies depression - Endocrine Comment: hypothyroid after treatment of Graves disease Endocrine: Denies fatigue, Denies weight change - Hematologic/Lymphatic Comment: baby aspirin - Allergic/Immunologic Allergic/Immunologic: Reports seasonal allergies Past Medical History Past Medical History: GERD/Reflux, Hyperlipidemia, Hypertension, Osteoarthritis (OA), Thyroid Disorder Additional Past Medical History / Comment(s): kelton lobato lt knee,varicose vein-laser procedures completed,2012 underactive kidneys, uti's History of Any Multi-Drug Resistant Organisms: None Reported, ESBL Date of last positivie culture/infection: 12/17/17 MDRO Source:: ESBL URINE Past Surgical History: Hysterectomy, Orthopedic Surgery Additional Past Surgical History / Comment(s): Knee surgery in 2016 Past Anesthesia/Blood Transfusion Reactions: No Reported Reaction Past Psychological History: No Psychological Hx Reported Smoking Status: Light tobacco smoker Past Alcohol Use History: Occasional Past Drug Use History: None Reported Additional Drug Use History / Comment(s): started smoking 1979-stopped 1997 - Past Family History Mother Family Medical History: Diabetes Mellitus Additional Family Medical History / Comment(s): Alheimer's Father Family Medical History: Diabetes Mellitus Additional Family Medical History / Comment(s): heart problems Medications and Allergies Home Medications Medication Instructions Recorded Confirmed Type L.acidoph,Paracasei, B.lactis 1 each PO QAM 11/04/15 08/08/18 History [Probiotic] Levothyroxine Sodium [Levoxyl] 175 mcg PO QAM 11/04/15 08/08/18 History Omeprazole [PriLOSEC] 20 mg PO QAM 11/04/15 08/08/18 History Cholecalciferol (Vitamin D3) 4,000 unit PO QAM 07/02/17 08/08/18 History [Vitamin D3] Citalopram Hydrobromide [CeleXA] 40 mg PO QAM 07/02/17 08/08/18 History Aspirin [Adult Low Dose Aspirin EC] 81 mg PO HS 01/01/18 08/08/18 History Atorvastatin Calcium [Lipitor] 40 mg PO HS 01/10/18 08/08/18 History Losartan Potassium 100 mg PO QAM 08/08/18 08/08/18 History Multivitamins, Thera [Multivitamin 1 tab PO QAM 08/08/18 08/08/18 History (formulary)] Niacin 500 mg PO QAM 08/08/18 08/08/18 History Trimethoprim 100 mg PO QAM 08/08/18 08/08/18 History Ubidecarenone [Co Q-10] 100 mg PO QAM 08/08/18 08/08/18 History Allergies Allergy/AdvReac Type Severity Reaction Status Date / Time Sulfa (Sulfonamide Allergy Mild Rash/Hives Verified 08/08/18 08:53 Antibiotics) Surgical - Exam Vital Signs Temp Pulse Resp BP Pulse Ox 97.3 F L 85 16 161/71 96 08/08/18 09:00 08/08/18 09:00 08/08/18 09:00 08/08/18 09:00 08/08/18 09:00 - General well developed, well nourished, no distress - Eyes normal ocular movement - ENT no hearing loss, no congestion - Neck no masses, trachea midline - Respiratory normal respiratory effort, clear to auscultation - Cardiovascular Rhythm: regular Heart Sounds: normal: S1, S2 - Abdomen Abdomen: soft - Integumentary normal turgur - Neurologic no disoriented, no combative - Musculoskeletal normal gait, normal posture - Psychiatric oriented to time, oriented to person, oriented to place, speech is normal, memory intact Breast examination: Bypass: Multi-positional exam no dominant masses or nodules of concern Right axilla: Well-healed scar from prior removal of lipoma and no evidence of adenopathy of concern Left breast: Multi-positional exam no dominant masses or nodules of concern Left axilla: No adenopathy of concern Results Mammogram report reviewed from Assessment and Plan Assessment: Impression: 1. Benign mammogram from 2. Fibrocystic breast changes 3. Family history of breast cancer 4. High risk for breast cancer 5. Hypothyroidism 6. Arthritis 7. Hypertension 8. Questionable cardiac murmur Plan: 1. Bilateral mammogram in 1 year with physician exam at that time 2. Medical management of medical conditions 3. Patient is going to have an echo related to question of a cardiac murmur will follow with primary care doctor 4. Knee replacement secondary to arthritis in the future Cc: Dr. Isabel Bourgeois
== END | disposition home or self-care (01) ==
LOC: WWCWWP 08:32
PROVIDERS: ATTEND Surgery
DX: Z53.9 Procedure and treatment not carried out, unspecified reason (principal)

== ENCOUNTER → 2018-11-07 | Outpatient (CLI) | payer MEDICARE | LOC: LABWHC1 10:25 | PROVIDERS: ATTEND Orthopaedic Surgery | DX: Z01.812 Encounter for preprocedural laboratory examination (principal) | CPT/HCPCS: 87070 ==

== ENCOUNTER 2018-11-25 11:08 | Day surgery (SDC) | payer MEDICARE ==
[2018-11-18 09:35] VITALS: BMI 27.4
--- NOTE | 2018-11-24 13:30 | HP ---
HISTORY AND PHYSICAL REASON FOR ADMISSION: Surgery 11/25/2018 HISTORY OF PRESENT ILLNESS: Swati Britton is a 68-year-old patient seen with symptomatic left knee osteoarthritis. After treatment options were discussed with her, she elected proceed with left total knee arthroplasty. Consent regarding the procedure was obtained. Medical clearance was provided by Dr. Bourgeois. PAST MEDICAL HISTORY: Hypertension, hyperlipidemia, hypothyroidism. PAST SURGICAL HISTORY: Hysterectomy. MEDICATIONS: Hydrochlorothiazide, lovastatin, metoprolol, Synthroid. ALLERGIES: None. SOCIAL HISTORY: She denies current tobacco use. PHYSICAL EXAMINATION: Evaluation of the left knee range of motion is -3 to 115 degrees. Tenderness medial joint line. Crepitus along the medial and patellofemoral compartments range of motion. Ligaments stable. Hip rotation without pain. Distal neurovascular exam intact. RADIOGRAPHS: Left knee radiographs reveal severe osteoarthritic changes. IMPRESSION: 1. Left knee osteoarthritis. 2. Hypertension. 3. Hyperlipidemia. 4. Hypothyroidism. PLAN: Left total knee arthroplasty. Surgery 11/25/2018. MMODL / IJN: [id number] /
[~2018-11-25 11:08] MED LIST changes: +ACETAMINOPHEN TAB 500 MG TAB PO ONE; -HEPARIN SODIUM,PORCINE 5,000 UNIT/ML 1 ML VIAL SQ ONE; +HYDROmorphone 0.5 MG/0.5 ML SYRINGE IVP PRN; +LACTATED RINGERS 1,000 ML IV SCH; -Pre Op ABX Message 1 EACH MISC MISCELLANE ONE; +SCOPOLAMINE 1.5MG/72HR PATCH TRANSDERM ONE; +TRANEXAMIC ACID 1,000 MG in SODIUM CHLORIDE 0.9% 100 ML IVPB ONE; +ceFAZolin IN SWFI 2 GM/20 ML SYRINGE IVP ONE; -fentaNYL (PF) 50 MCG/ML 2 ML AMP IV PRN
[2018-11-25] MEDS: MELOXICAM 7.5 MG TAB PO ONE ×2 (12:02→13:00)
[2018-11-25] MEDS ORDERED: LIDOCAINE 1% 20 ML VIAL (10MG/ML) FOR IV START INTRADERMA ONE (12:02)
[2018-11-25] MEDS ORDERED: MIDAZOLAM (PF) 2 MG/2 ML VIAL IV ONE (12:19)
[2018-11-25] MEDS ORDERED: fentaNYL (PF) 50 MCG/ML 2 ML AMP IV ONE (12:19)
[2018-11-25] MEDS ORDERED: ROPIVACAINE 246.25 MG, EPINEPHrine 0.5 MG, KETOROLAC 30 MG, cloNIDine HCL/PF 80 MCG, WA... MISCELLANE ONE ×5 (12:35)
[2018-11-25] MEDS ORDERED: ROPIVACAINE 1,100 MG, SODIUM CHLORIDE 0.9% 500 ML 330 ML MISCELLANE PRN ×2 (12:51)
--- NOTE | 2018-11-25 12:53 | P.ANPRN ---
Procedure Note - Anesthesia - Nerve Block Performed Left Adductor Canal Infusion Time Out Performed: Yes Date of Procedure: 11/25/18 Procedure Start Time: 12:18 Location of Patient Procedure: PreOp Indication: Acute Post-Operative Pain, Requested by physician Specifically requested for management of pain by DrSheila: Dwight Salmon Sedation Type: Sedate with meaningful contact maintained Preparation: Sterile Prep Position: Supine Catheter Depth at Skin (cm): 7 Catheter: Indwelling Needle Types: Pajunk Needle Gauge: 18 Technique: Ultrasound Injectate: 0.5% Ropivacaine (see comment for volume) (20) Blood Aspirated: No Pain Paresthesia on Injection Noted: No Resistance on Injection: Normal Events: Uneventful and Well Tolerated
[2018-11-25] MEDS ORDERED: TRANEXAMIC ACID 1,000 MG/10 ML VIAL ONE (13:26)
[2018-11-25] MEDS ORDERED: PROPOFOL 10 MG/ML 20 ML VIAL IV ONE (13:26)
[2018-11-25] MEDS ORDERED: fentaNYL (PF) 50 MCG/ML 2 ML AMP ONE (13:26)
[2018-11-25] MEDS ORDERED: MIDAZOLAM 2 MG/2 ML VIAL ONE (13:26)
[2018-11-25] MEDS ORDERED: SODIUM CHLORIDE 0.9% 100 ML BAG ONE (13:26)
[2018-11-25] MEDS ORDERED: LACTATED RINGERS 1,000 ML IV ONE (14:00)
[2018-11-25] MEDS ORDERED: ceFAZolin 3,000 MG in SODIUM CHLORIDE 0.9% IRRIGATIO 3,000 ML IRRIGATION ONE (14:11)
[2018-11-25] MEDS ORDERED: HYDROmorphone 0.5 MG/0.5 ML SYRINGE IVP PRN ×3 (15:37)
[2018-11-25] MEDS ORDERED: HYDROcodone/APAP 5-325MG 1 EACH TAB PO PRN (15:37)
[2018-11-25] MEDS ORDERED: ONDANSETRON 4 MG/2 ML VIAL IVP PRN (15:37)
[2018-11-25] MEDS ORDERED: NALOXONE 0.4 MG/ML 1 ML VIAL IV PRN (15:37)
--- NOTE | 2018-11-25 15:37 | P.OP ---
Date of Procedure: 11/25/18 Preoperative Diagnosis: Left knee osteoarthritis Postoperative Diagnosis: Left knee osteoarthritis Procedure(s) Performed: Left total knee arthroplasty Implants: 1. Microport evolution MP size 5 left cemented femur 2. Microport evolution size 5 left cemented tibial baseplate 3. Microport evolution size 5 MP CS 10 mm polyethylene tibial insert 4. Microport advance 35 mm all polyethylene cemented patella Anesthesia: regional (Adductor canal catheter), local, spinal Surgeon: Dwight Salmon [employer] Former #1: Win Suarez Estimated Blood Loss (ml): 40 Pathology: other (Bone) Condition: stable Disposition: PACU Indications for Procedure: 68-year-old patient seen with symptomatic left knee osteoarthritis. After treatment options were discussed, she elected to proceed with total knee arthroplasty. Operative Findings: see description of procedure Description of Procedure: Patient was taken to the operative suite after having an adductor canal catheter placed by the department of anesthesia for postoperative pain management. Patient underwent a spinal anesthetic by the department of anesthesia. Patient was given preoperative IV intake antibiotics and TXA. A well-padded tourniquet was placed about the [] lower extremity. The lower extremity was then prepped and draped in the normal sterile orthopedic fashion. The extremity was elevated, a tourniquet was insufflated to 300. A standard anterior incision was made sharply through skin. Dissection was taken down through the subcutaneous soft tissues down to the extensor mechanism. A medial arthrotomy was performed, patella was everted and knee was flexed. There was advanced osteoarthritis noted. I introduced my distal intramedullary femoral drill. I then introduced the distal femoral cutting jig. Rory PANIAGUA secured the cutting jig with 2 pins. I held retractors in position while Rory PANIAGUA performed the distal femoral resection through the guide area we now removed her distal femoral cutting guide. We now placed our 4-in-1 femoral cutting block and positioned and it was secured with 2 pins by Rory PANIAGUA while I held the block in position. The distal femoral finishing was now completed. A proximal tibial cutting guide was positioned. I held the guide in the appropriate position with both hands well Rory PANIAGUA inserted stabilizing pins into the guide. Proximal tibial cut was made. We now placed a trial femoral component into position, along with an appropriate size tibial tray and insert. We now took the knee through range of motion and had full extension good flexion and good overall soft tissue balance noted. The patella was everted and stabilized with 2 towel clips held by Rory PANIAGUA while I performed a flush with patellar quad tendon utilizing a fresh sawblade. We templated the patella, appropriate drill holes were made. An appropriate trial patella was positioned, knee was taken through full range of motion with the patella tracking very nicely. The trial patella was removed. Drill holes were made through the femoral component. All trial components were removed after marking off the appropriate rotation of the tibia. Retractors were now positioned along the proximal tibia. An appropriate keel punch was made with the appropriate size tibial guide by myself on Rory PANIAGUA assisted by holding retractors. At this point appropriate size implants were chosen and opened. The joint was irrigated copiously with pulse lavage mechanical irrigation. The posterior capsule was infiltrated with local analgesic. The wound was irrigated with pulse lavage mechanical irrigation. We mixed antibiotic methylmethacrylate. We placed the knee into flexion. We placed multiple retractors assisted by Rory PANIAGUA to expose the proximal tibia. Once the methyl methacrylate was ready, the tibial component was cemented into place removing any excess methylmethacrylate form by both myself and Rory PANIAGUA. The femoral component was cemented into place removing the removing any excess methylmethacrylate performed by both myself and Rory PANIAGUA. We then inserted the appropriate size polyethylene tibial insert. We made sure that it was locked into position. We took the knee into full extension, and then back in a flexion making sure we had removed any excess methylmethacrylate. The patellar component was then cemented down and secured with clamp. Excess methylmethacrylate removed. We kept the knee in full extension, patellar clamp in position until methylmethacrylate had hardened. Once it had hardened the patellar clamp was removed. The knee was taken through full range of motion. The patella tracked nicely. There was good soft tissue balancing. The tourniquet was now released. Additional hemostasis was achieved via electrocautery. A second gram of TXA was given. The wound again was irrigated with pulse lavage mechanical irrigation. The superficial soft tissues were infiltrated local analgesic. The extensor mechanism was repaired with Vicryl. We checked the repair with range of motion and it was stable. The subcutaneous soft tissues were repaired with Vicryl in layers. The skin was adele roximated with pernio/Dermabond. Sterile dressings were applied followed by loose web roll and Tyshawn bandage. The patient was transferred to a bed, and taken to recovery in stable and satisfactory condition. Rory PANIAGUA assisted with this complex procedure.
--- NOTE | 2018-11-25 16:06 | XR ---
Left knee Limited HISTORY: Status post left knee arthroplasty 2 views of the left knee Patient is status post left knee arthroplasty. There is anatomic alignment. Lucency in the soft tissu es compatible with postop state. Ossific densities posterior to the tibial component could possibly r epresent small loose bodies. IMPRESSION: Orthopedic follow-up. Additional findings above.
[2018-11-25] MEDS: LACTATED RINGERS 1,000 ML IV SCH (16:44)
[2018-11-25] MEDS ORDERED: SENNOSIDES-DOCUSATE SODIUM 1 EACH TAB PO SCH (21:00)
[2018-11-25] MEDS ORDERED: ATORVASTATIN 80 MG TAB PO SCH (21:00)
[2018-11-25] MEDS ORDERED: MELATONIN 1 MG TAB PO PRN (21:00)
[2018-11-25] MEDS ORDERED: TRIMETHOPRIM 100 MG TAB PO SCH (21:00)
[2018-11-25] MEDS: ceFAZolin IN SWFI 2 GM/20 ML SYRINGE IVP SCH (21:50)
--- NOTE | 2018-11-26 00:27 | CONS ---
CONSULTATION DATE OF SERVICE: 11/25/2018 REASON FOR CONSULTATION: Advice regarding hypertension and hyperlipidemia requested by Dr. Salmon. HISTORY OF PRESENT ILLNESS: This 68-year-old woman with a past medical history of GERD, hypertension, hyperlipidemia, DJD, history of thyroid disorder, history of torn cartilage, history of breast surgery being followed by Dr. Baldemar Bourgeois in the outpatient setting underwent left total knee joint arthroplasty by Dr. Salmon for severe degenerative joint disease. The patient tolerated the procedure well. No history of chest pain, palpitations, headache, loss of consciousness, nausea, diarrhea, fever, rigors, chills at this time. PAST MEDICAL HISTORY: GERD, hypertension, hyperlipidemia, history of DJD, history of ESBL, history of breast surgery. MEDICATIONS: Home medications are: 1. Multivitamins. 2. Aspirin 81 mg q.h.s. 3. Tylenol arthritis. 4. Coenzyme Q 200 mg p.o. q.h.s. 5. Trimethoprim 100 mg q.h.s. 6. Niacin 500 mg q.a.m. 7. Vitamin D3 2000 q.a.m. 8. Lipitor 80 mg q.h.s. 9. Norvasc 5 mg p.o. daily. 10.Prilosec 20 mg p.o. q.a.m. 11.Losartan 100 mg p.o. q.a.m. 12.Levothyroxine 175 mcg p.o. q.a.m. 13.Probiotic 1 p.o. b.i.d. 14.Hydrochlorothiazide 12.5 mg p.o. daily. 15.Iron sulfate 320 mg daily. 16.Seroquel 40 mg q.h.s. 17.Melatonin 2 mg q.h.s. p.r.n. ALLERGIES: SULFA. FAMILY HISTORY: History of cancer and Alzheimer's. SOCIAL HISTORY: History of smoking, continued ongoing. No history of alcohol intake. REVIEW OF SYSTEMS: ENT: No diminished vision. No diminished hearing. CARDIOVASCULAR system: No angina, palpitations. RESPIRATORY: No cough. GI mentioned earlier. : No dysuria. NERVOUS SYSTEM: No numbness or weakness. ALLERGY/IMMUNOLOGY: No asthma or hayfever. MUSCULOSKELETAL as mentioned earlier. HEMATOLOGY/ONCOLOGY: No history of anemia. ENDOCRINE: Hypothyroidism. CONSTITUTIONAL: As mentioned earlier. DERMATOLOGY: Negative. RHEUMATOLOGY: Negative. PSYCHIATRY: As mentioned earlier. PHYSICAL EXAMINATION: Alert and oriented x3. Pulse 69, blood pressure 130/52, respiration 16, temperature normal. Pulse ox 93% on room air. HEENT: Oral mucosa moist. NECK is no jugular venous distention. No carotid bruit. No lymph node enlargement. CARDIOVASCULAR system: S1, S2 muffled. RESPIRATORY: Breath sounds diminished in the bases. No rhonchi. No crackles. ABDOMEN: Soft, nontender. No mass palpable. LEGS: Status post left knee arthroplasty. NERVOUS SYSTEM: Higher functions as mentioned earlier, moves all 4 limbs. No focal motor or deficit. LYMPHATICS: No lymph nodes palpable in the neck, axillae or groin. SKIN: No ulcer, rash or bleeding. JOINTS: No active deforming arthropathy. LABS: At this time shows labs are not available. The preop labs: Hematology is normal. Chemistry shows creatinine 1.11. ASSESSMENT: 1. Status post left total knee arthroplasty. 2. Hypertension. 3. Hyperlipidemia. 4. Degenerative joint disease. 5. Hypothyroidism. 6. Gastroesophageal reflux disease. 7. History of ESBL E coli ESBL UTI. 8. History of breast surgery. 9. History of nicotine dependence. 10.Possibly chronic kidney disease stage 2. RECOMMENDATION AND DISCUSSION: In this 68-year-old woman who presented with multiple medical issues, at this time I recommend to continue current management and treatment otherwise repeat labs. DVT prophylaxis. Incentive spirometry. Will follow the patient closely and the patient may be asked to follow up with Dr. Baldemar Bourgeois closely after discharge. Thank you Dr. Salmon for letting us participate in the care of this patient. MMODL / IJN: [id number] /
[2018-11-26] MEDS: HYDROcodone/APAP 5-325MG 1 EACH TAB PO PRN ×3 (00:57→13:07)
[2018-11-26] MEDS: LACTATED RINGERS 1,000 ML IV SCH (04:33)
[2018-11-26] MEDS: ceFAZolin IN SWFI 2 GM/20 ML SYRINGE IVP SCH (05:23)
[2018-11-26] MEDS ORDERED: ENOXAPARIN 30 MG/0.3 ML SYRINGE SQ SCH (06:00)
[2018-11-26] MEDS ORDERED: LEVOTHYROXINE 75 MCG TAB PO SCH (06:30)
[2018-11-26] MEDS ORDERED: LEVOTHYROXINE 100 MCG TAB PO SCH (06:30)
[2018-11-26 07:17] VITALS: BP 145/72; PULSE 95; RESP 13; TEMP 98.2
[2018-11-26 08:30] LABS: Calcium 9.2 mg/dL (8.4-10.2); Potassium 3.7 mmol/L (3.5-5.1)
[2018-11-26 08:31] LABS: Basophils % (A) 0 %; Eosinophils % (A) 0 %; HCT 35.4 % (34.0-46.0); HGB 11.8 gm/dL (11.4-16.0); Lymphocytes # (A) 0.9 k/uL (1.0-4.8); Lymphocytes % (A) 6 %; MCH 30.4 pg (25.0-35.0); MCHC 33.4 g/dL (31.0-37.0); MCV 90.9 fL (80.0-100.0); Monocytes # (A) 1.1 k/uL (0-1.0); Monocytes % (A) 8 %; Neutrophils # (A) 12.4 k/uL (1.3-7.7); Neutrophils % (A) 85 %; Platelet Count 240 k/uL (150-450); RBC 3.89 m/uL (3.80-5.40); RDW 14.5 % (11.5-15.5); WBC 14.6 k/uL (3.8-10.6)
[2018-11-26] MEDS ORDERED: CITALOPRAM HYDROBROMIDE 20 MG TAB PO SCH (09:00)
[2018-11-26] MEDS ORDERED: LOSARTAN 50 MG TAB PO SCH (09:00)
[2018-11-26] MEDS ORDERED: PANTOPRAZOLE 40 MG TABLET PO SCH (09:00)
[2018-11-26] MEDS ORDERED: HYDROCHLOROTHIAZIDE 12.5 MG CAP PO SCH (09:00)
[2018-11-26] MEDS ORDERED: NIACIN TR 500 MG CAPLET PO SCH (09:00)
[2018-11-26] MEDS ORDERED: MELOXICAM 7.5 MG TAB PO SCH (09:00)
[2018-11-26] MEDS ORDERED: amLODIPine 5 MG TAB PO SCH (09:00)
--- NOTE | 2018-11-26 11:29 | P.PN ---
Subjective Progress Note Date: 11/26/18 Principal diagnosis: Status post left total knee arthroplasty Patient evaluated bedside today, she is resting comfortably. Pain is well- controlled. She is done well with therapy at this time. She denies any chest pain or shortness of breath. Objective - Vital Signs Vital signs: Vital Signs Temp 98.2 F 11/26/18 07:10 Pulse 95 11/26/18 07:10 Resp 13 11/26/18 07:10 BP 145/72 11/26/18 07:10 Pulse Ox 94 L 11/26/18 07:10 Intake & Output 11/25/18 11/26/18 11/26/18 18:59 06:59 18:59 Intake Total 2233 Output Total 40 Balance 2193 Intake: IV 2010 Oral 222 Output: Estimated Blood Loss 40 Other: Voiding Method Toilet Toilet # Voids 1 - Exam Left lower extremity: Incision is clean, dry, and intact. The exofin fusion tape is in good condition. There is minimal soft tissue swelling and ecchymosis surrounding the medial and lateral aspects of the incision. Calf is soft, no tenderness with palpation. Plantar flexion, dorsiflexion, EHL, FHL are intact. Sensory exam to light touch throughout the extremity is intact, dorsal pedis pulses 2+. - Labs CBC & Chem 7: 11/26/18 07:16 11/26/18 07:16 Labs: Abnormal Lab Results - Last 24 Hours (Table) 11/26/18 Range/Units 07:16 WBC 14.6 H (3.8-10.6) k/uL Neutrophils # 12.4 H (1.3-7.7) k/uL Lymphocytes # 0.9 L (1.0-4.8) k/uL Monocytes # 1.1 H (0-1.0) k/uL Assessment and Plan Plan: Assessment: Postoperative day 1 status post left total knee arthroplasty Plan: Pain control, we'll discharge home on oral medication GI and DVT prophylaxis, aspirin 81 mg twice a day Wound care instructions discussed Physical therapy and nursing of discharge Medical recommendations Patient will be discharged home today Time with Patient: Less than 30
--- NOTE | 2018-11-26 11:32 | P.DS ---
Providers Date of admission: 11/25/2018 Expected date of discharge: 11/26/18 Attending physician: Dwight Salmon Consults: 11/25/18 15:37 Consult Physician Routine Consulting Provider: Ebonie Guadarrama Consult Reason/Comments: Medical management Do you want consulting provider notified?: Yes Primary care physician: Baldemar Bourgeois [facility] Course: Date of admission: 11/25/2018 Date of discharge: 11/26/2018 Admission diagnosis: Status post left total knee arthroplasty Discharge diagnosis: Same Attending physician: Dr. Salmon Surgical procedures: Left total knee arthroplasty Brief history: Patient is a 68-year-old female with a history of progressive primary left knee osteoarthritis. At this point patient has failed conservative treatment measures and has opted to proceed with a elective left total knee arthroplasty. Hospital course: Details of patient's surgery can be found in operative report. Patient tolerated the procedure well and was subsequently transported to orthopedic floor. Patient's orthopeidc and medical care was provided daily. Patient had daily laboratory tests performed for evaluation of overall blood counts. Patient had daily physical therapy to include strengthening range of motion as well as education with walker ambulation. Patient had daily CPM usage as part of their physical therapy program. Patient was treated with Lovenox for their postoperative DVT prophylaxis during their inpatient stay. Patient was noted to have a relatively uneventful postoperative course. Patient reported satisfactory pain control with oral pain medications by postoperative day 0. Patient showed satisfactory progress with physical therapy. Patient moved steadily through the program and had no difficulty meeting the goals by postoperative day 1. Given patient's otherwise satisfactory course and having met physical therapy goals, plan is to discharge patient home on postoperative day 1. Discharge condition/disposition: Patient will be discharged home in stable condition. Discharge medications: Instructions are given on resumption of patient's normal daily medications per primary care recommendation, in addition patient will be prescribed Cascade 7.5 mg/325 mg, Colace 100 mg. Discharge instructions: 1. Wound care and infection precautions, keep incision dry and covered while showering, no lotions, creams, moisturizers. No soaking, tubs, pools, hottubs. Do not scrub over the incision. 2. Weight-bear as tolerated with walker / cane until follow-up. 3. Ice and elevate when necessary. Do not exceed 20 minutes per hour with ice pack. 4. Utilize compression sleeve until seen at first follow up appointment. 5. Visiting nursing care. 6. Home physical therapy including home CPM. 7. Pain meds and anticoagulants per prescription. 8. Pain medication has potential to cause constipation. Increase oral fluid and fiber intake. Contact primary care provider if you have not had a bowel movement within 48 hours after discharge 9. No anti-inflammatory medication until discussed at first post operative visit, this including Motrin, Aleve, Mobic, Diclofenac. 10. Follow up in office at 2 weeks postop with Rory Suarez PA-C 11. Follow up with your primary care doctor 7-10 days after discharge. 12. Contact [facility] with any questions, . Procedures: Left total knee arthroplasty Patient Condition at Discharge: Good Plan - Discharge Summary Discharge Rx Participant: Yes New Discharge Prescriptions: New Aspirin [Adult Low Dose Aspirin EC] 81 mg PO BID #60 tablet. Docusate [Colace] 100 mg PO DAILY #30 capsule HYDROcodone/APAP 7.5-325MG [Cascade 7.5] 1 - 2 each PO Q6HR PRN #40 tab PRN Reason: Pain No Action Levothyroxine Sodium [Levoxyl] 175 mcg PO QAM L.acidoph,Paracasei, B.lactis [Probiotic] 1 each PO BID Omeprazole [PriLOSEC] 20 mg PO QAM Cholecalciferol (Vitamin D3) [Vitamin D3] 2,000 unit PO QAM Citalopram Hydrobromide [CeleXA] 40 mg PO QAM Ubidecarenone [Co Q-10] 200 mg PO QAM Niacin 500 mg PO QAM Multivitamins, Thera [Multivitamin (formulary)] 1 tab PO QAM Losartan Potassium 100 mg PO QAM Trimethoprim 100 mg PO HS Hydrochlorothiazide 12.5 mg PO DAILY Atorvastatin [Lipitor] 80 mg PO HS amLODIPine [Norvasc] 5 mg PO DAILY Ferrous Sulfate [Feosol] 325 mg PO DAILY Acetaminophen [Tylenol Arthritis] 650 mg PO Q6HR PRN PRN Reason: Pain Melatonin 2 mg PO HS PRN PRN Reason: sleep Discharge Medication List L.acidoph,Paracasei, B.lactis [Probiotic] 1 each PO BID 11/04/15 [History] Levothyroxine Sodium [Levoxyl] 175 mcg PO QAM 11/04/15 [History] Omeprazole [PriLOSEC] 20 mg PO QAM 11/04/15 [History] Cholecalciferol (Vitamin D3) [Vitamin D3] 2,000 unit PO QAM 07/02/17 [History] Citalopram Hydrobromide [CeleXA] 40 mg PO QAM 07/02/17 [History] Losartan Potassium 100 mg PO QAM 08/08/18 [History] Multivitamins, Thera [Multivitamin (formulary)] 1 tab PO QAM 08/08/18 [History] Niacin 500 mg PO QAM 08/08/18 [History] Trimethoprim 100 mg PO HS 08/08/18 [History] Ubidecarenone [Co Q-10] 200 mg PO QAM 08/08/18 [History] Acetaminophen [Tylenol Arthritis] 650 mg PO Q6HR PRN 11/18/18 [History] Atorvastatin [Lipitor] 80 mg PO HS 11/18/18 [History] Ferrous Sulfate [Feosol] 325 mg PO DAILY 11/18/18 [History] Hydrochlorothiazide 12.5 mg PO DAILY 11/18/18 [History] Melatonin 2 mg PO HS PRN 11/18/18 [History] amLODIPine [Norvasc] 5 mg PO DAILY 11/18/18 [History] Aspirin [Adult Low Dose Aspirin EC] 81 mg PO BID #60 tablet. 11/26/18 [Rx] Docusate [Colace] 100 mg PO DAILY #30 capsule 11/26/18 [Rx] HYDROcodone/APAP 7.5-325MG [Cascade 7.5] 1 - 2 each PO Q6HR PRN #40 tab 11/26/18 [Rx] Follow up Appointment(s)/Referral(s): [facility], [NON-STAFF] - As Needed Baldemar Bourgeois DO [Primary Care Provider] - 12/04/18 2:45 pm Win Suarez PAC [PHYSICIAN CEMENT DESPATCH OPERATOR] - 12/11/18 10:00 am Patient Instructions/Handouts: *[facility] - On-Q Pain Pump Discharge Instructions, Knee Replacement (DC) Activity/Diet/Wound Care/Special Instructions: Orthopedic Discharge Instructions: 1. Wound care and infection precautions, keep incision dry and covered while showering, no lotions, creams, moisturizers. No soaking, pools, hot tubs. Do not scrub over incision. 2. Weight-bear as tolerated with walker / cane until follow-up. 3. Ice and elevate when necessary. Do not exceed 20 minutes per hour with ice pack. 4. Utilize compression sleeve until seen at first follow up appointment. 5. Pain meds and anticoagulants per prescription. 6. Pain medication has potential to cause constipation. Increase oral fluid and fiber intake. Contact primary care provider if you have not had a bowel movement within 48 hours after discharge. 7. No anti-inflammatory medication until discussed at first post operative visit, this including Motrin, Aleve, Mobic, Diclofenac. 8. Follow up in office at 2 weeks postop with Rory Suarez PA-C 9. Follow up with your primary care doctor 7-10 days after discharge. 10. Contact [facility] with any questions, . Discharge Disposition: HOME WITH HOME HEALTH SERVICES
--- NOTE | 2018-11-26 16:34 | PN ---
PROGRESS NOTE DATE OF SERVICE: 11/26/2018 This 68-year-old woman was admitted after left total knee surgery is improving significantly. No chest pain. No palpitations. No fever. EXAM: Alert and oriented times three. Pulse 95. Blood pressure 144/72, respirations 18, temperature 98.2, pulse ox 94% on room air. HEENT: Conjunctivae normal. NECK: No jugular venous distention. CARDIOVASCULAR: S1, S2 muffled. RESPIRATIONS: Breath sounds diminished in the bases. No rhonchi. No crackles. ABDOMEN: Soft. LEGS: Status post left knee surgery. NERVOUS SYSTEM: No focal deficits. LABS: WBC 14.6. ASSESSMENT: 1. Bronchial asthma acute exacerbation with acute purulent tracheobronchitis. 2. Increased WBC possibly reactive. 3. Asthma history. 4. History of fibromyalgia. 5. Sleep apnea. 6. Glaucoma. 7. History of degenerative joint disease. 8. History of anxiety, depression. 9. History of nerve stimulator. 10.History of knee replacements. RECOMMENDATIONS AND DISCUSSION: Recommend to continue current medications, management and symptomatic treatment. Otherwise patient will be slated for discharge. Recommend to continue the home medications. Closely follow with primary physician in the outpatient setting. Otherwise further recommendations to follow. Thank you Dr. Salmon. MMODL / IJN: [id number] /
== END 2018-11-26 15:36 | disposition home health service (06) ==
LOC: OR 11:08 → 4SSUR 16:53 → OR 11-26 15:36
PROVIDERS: ATTEND Orthopaedic Surgery
DX: M17.12 Unilateral primary osteoarthritis, left knee (principal); I10 Essential (primary) hypertension; E78.5 Hyperlipidemia, unspecified; E03.9 Hypothyroidism, unspecified; Z90.710 Acquired absence of both cervix and uterus; K21.9 Gastro-esophageal reflux disease without esophagitis; F17.200 Nicotine dependence, unspecified, uncomplicated; Z16.12 Extended spectrum beta lactamase (ESBL) resistance; Z86.19 Personal history of other infectious and parasitic diseases; J45.901 Unspecified asthma with (acute) exacerbation; M79.7 Fibromyalgia; G47.30 Sleep apnea, unspecified; H40.9 Unspecified glaucoma; F41.9 Anxiety disorder, unspecified; F32.9 Major depressive disorder, single episode, unspecified; F39 Unspecified mood [affective] disorder; Z79.890 Hormone replacement therapy; Z79.899 Other long term (current) drug therapy; Z88.2 Allergy status to sulfonamides
CPT/HCPCS: 27447; 97161; 64448; 80048; 85025; 88300; 73560; C1776; C1713; C1772; J2250 ×2; J0171; J1100; J2405; J0690 ×3; J3010; J1885; J1650; J2795; J2704; J0735

== ENCOUNTER → 2019-08-04 | Outpatient (CLI) | payer MEDICARE ==
--- NOTE | 2019-08-05 11:56 | MM ---
Reason for exam: screening (asymptomatic). Last mammogram was performed 1 year ago. History: Patient is postmenopausal. Family history of breast cancer in sister at age 50 and breast cancer in 2 maternal aunts. Benign US breast needle core RT of the right breast, January 01, 2018. Benign US biopsy breast VAD LT of the left breast, July 06, 2017. US discontinued breast bx RT of the right breast, July 06, 2017. Benign MG stereo VAD BX RT of the right breast, July 05, 2017. Benign excisional biopsy of the right breast, 2005. Took hormonal contraceptives for 1 year. Took estrogen beginning at age 66. Took progesterone for 8 years beginning at age 38. Physical Findings: A clinical breast exam by your physician is recommended on an annual basis and results should be correlated with mammographic findings. MG 3D Screening Mammo W/Cad Bilateral CC and MLO view(s) were taken. Prior study comparison: July 30, 2018, bilateral MG 3d diag mammo w/cad DARIO. December 27, 2017, bilateral MG 3d diag mammo w/cad DARIO. The breast tissue is heterogeneously dense. This may lower the sensitivity of mammography. There are benign appearing stable right upper outer quadrant masses and decreased size of left masses. No suspicious abnormality. Bilateral biopsy markers. No significant changes when compared with prior studies. ASSESSMENT: Benign, BI-RAD 2 RECOMMENDATION: Routine screening mammogram of both breasts in 1 year.
== END | disposition home or self-care (01) ==
LOC: RADMAMWWP 08:33
PROVIDERS: ATTEND Family Medicine
DX: Z12.31 Encounter for screening mammogram for malignant neoplasm of breast (principal)
CPT/HCPCS: 77063; 77067

== ENCOUNTER → 2020-10-12 | Outpatient (CLI) | payer MEDICARE, OTHER ==
--- NOTE | 2020-10-13 10:21 | MM ---
Reason for exam: screening (asymptomatic). Last mammogram was performed 1 year and 2 months ago. History: Patient is postmenopausal. Family history of breast cancer in sister at age 50 and breast cancer in 2 maternal aunts. Benign US breast needle core RT of the right breast, January 01, 2018. Benign US biopsy breast VAD LT of the left breast, July 06, 2017. US discontinued breast bx RT of the right breast, July 06, 2017. Benign MG stereo VAD BX RT of the right breast, July 05, 2017. Benign excisional biopsy of the right breast, 2005. Took hormonal contraceptives for 1 year. Took estrogen beginning at age 66. Took progesterone for 8 years beginning at age 38. Physical Findings: A clinical breast exam by your physician is recommended on an annual basis and results should be correlated with mammographic findings. MG 3D Screening Mammo W/Cad Bilateral CC and MLO view(s) were taken. Prior study comparison: August 04, 2019, bilateral MG 3d screening mammo w/cad. July 30, 2018, bilateral MG 3d diag mammo w/cad DARIO. The breast tissue is heterogeneously dense. This may lower the sensitivity of mammography. Previous mammotome biopsy in the right breast. Stable benign calcifications. No significant changes when compared with prior studies. ASSESSMENT: Benign, BI-RAD 2 RECOMMENDATION: Routine screening mammogram of both breasts in 1 year.
== END | disposition home or self-care (01) ==
LOC: RADMAMWWP 09:45
PROVIDERS: ATTEND Family Medicine
DX: Z12.31 Encounter for screening mammogram for malignant neoplasm of breast (principal); Z80.3 Family history of malignant neoplasm of breast; Z78.0 Asymptomatic menopausal state
CPT/HCPCS: 77063; 77067

== ENCOUNTER → 2021-02-03 | Outpatient (CLI) | payer MEDICARE, OTHER | END | disposition home or self-care (01) | LOC: LABWHC1 11:50 | PROVIDERS: ATTEND Orthopaedic Surgery | DX: Z01.812 Encounter for preprocedural laboratory examination (principal) | CPT/HCPCS: 87070 ==

== ENCOUNTER → 2021-02-03 | Outpatient (CLI) | payer MEDICARE, OTHER ==
[2021-02-03 12:41] LABS: Creatinine,Urine Random 167.8 mg/dL; Protein/Creatinine Ratio,Urine 0.03
[2021-02-03 19:00] LABS: Basophils # (A) 0.03 X 10*3/uL (0.00-0.10); Basophils % (A) 0.4 %; Eosinophils # (A) 0 X 10*3/uL (0.04-0.35); Eosinophils % (A) 0 %; HCT 42.8 % (37.2-46.3); Lymphocytes # (A) 1.35 X 10*3/uL (0.90-5.00); Lymphocytes % (A) 16.2 %; MCH 30.4 pg (27.0-32.0); MCHC 32.7 g/dL (32.0-37.0); Mean Platelet Volume 10.8 fL (9.5-12.2); Monocytes # (A) 0.84 X 10*3/uL (0.20-1.00); Monocytes % (A) 10.1 %; Neutrophils % (A) 72.9 %; Platelet Count 291 X 10*3/uL (140-440); RDW 13.3 % (11.5-14.5); WBC 8.35 X 10*3/uL (4.50-10.00)
[2021-02-03 20:11] LABS: % Iron Saturation 21.67 (12.00-45.00); African American GFR (CKD) 52.3 (60.0-200.0); Anion Gap 9.8 mmol/L (4.00-12.00); BUN/Creat Ratio 10.83 Ratio (12.00-20.00); Calcium 10.1 mg/dL (8.7-10.3); Carbon Dioxide 27.2 mmol/L (21.6-31.8); Non-African American GFR(CKD) 45.1 (60.0-200.0); Potassium 4.3 mmol/L (3.5-5.5)
[2021-02-03 20:19] LABS: Ferritin 103.4 ng/mL (10.0-291.0)
== END | disposition home or self-care (01) ==
LOC: LABWHC1 11:48
PROVIDERS: ATTEND Nurse Practitioner Family
DX: N18.30 Chronic kidney disease, stage 3 unspecified (principal); D64.9 Anemia, unspecified; R80.9 Proteinuria, unspecified
CPT/HCPCS: 36415; 80048; 82570; 82728; 83540; 83550; 84156; 85025

== ENCOUNTER → 2021-05-12 | Outpatient (CLI) | payer MEDICARE, OTHER | END | disposition home or self-care (01) | LOC: LABWHC1 09:11 | PROVIDERS: ATTEND Surgery Plastic and Reconstructive Surgery | DX: I11.9 Hypertensive heart disease without heart failure (principal) | CPT/HCPCS: 36415; 93005 ==

== ENCOUNTER → 2021-07-26 | Outpatient (CLI) | payer MEDICARE, OTHER ==
[2021-07-27 12:47] LABS: Coronavirus SARS CoV-2 Detected (Not Detected)
== END | disposition home or self-care (01) ==
LOC: LABPAT 10:20
PROVIDERS: ATTEND Surgery Plastic and Reconstructive Surgery
DX: Z03.818 Encounter for observation for suspected exposure to other biological agents ruled out (principal)

== ENCOUNTER → 2021-08-16 | Outpatient (CLI) | payer MEDICARE, OTHER ==
[2021-08-16 12:29] LABS: Creatinine,Urine Random 143.8 mg/dL; Protein/Creatinine Ratio,Urine 0.07
[2021-08-16 17:52] LABS: Basophils # (A) 0.06 X 10*3/uL (0.00-0.10); Basophils % (A) 0.8 %; Eosinophils # (A) 0.18 X 10*3/uL (0.04-0.35); Eosinophils % (A) 2.4 %; HCT 44.2 % (37.2-46.3); HGB 14.1 g/dL (12.0-15.0); Immature Grans, Automated 0.3 %; Lymphocytes # (A) 1.46 X 10*3/uL (0.90-5.00); Lymphocytes % (A) 19.3 %; MCHC 31.9 g/dL (32.0-37.0); Mean Platelet Volume 10.5 fL (9.5-12.2); Monocytes # (A) 0.86 X 10*3/uL (0.20-1.00); Monocytes % (A) 11.3 %; NRBC Per 100 WBC 0 /100 WBCS (0.0-0.0); Neutrophils % (A) 65.9 %; Platelet Count 322 X 10*3/uL (140-440); RDW 13.5 % (11.5-14.5); WBC 7.58 X 10*3/uL (4.50-10.00)
[2021-08-16 18:05] LABS: % Iron Saturation 25.29 (12.00-45.00); African American GFR (CKD) 58.1 (60.0-200.0); Anion Gap 12.3 mmol/L (10.00-18.00); BUN/Creat Ratio 10.27 Ratio (12.00-20.00); Blood Urea Nitrogen 11.3 mg/dL (9.0-27.0); Calcium 9.7 mg/dL (8.7-10.3); Carbon Dioxide 24.7 mmol/L (20.0-27.5); Magnesium 2.2 mg/dL (1.5-2.4); Non-African American GFR(CKD) 50.1 (60.0-200.0); Phosphorus 3.2 mg/dL (2.4-5.1); Potassium 4.6 mmol/L (3.5-5.5); Uric Acid 5.4 mg/dL (2.9-7.7)
[2021-08-16 20:14] LABS: Appearance,Urine Turbid (Clear); Bacteria,Urine 4+ /HPF (None Seen); Bilirubin,Urine Negative (Negative); Blood,Urine Trace (Negative); Color,Urine Yellow (Yellow); Ketones,Urine Trace mg/dL (Negative); Leukocyte Esterase,Urine Moderate (Negative); Nitrite,Urine Positive (Negative); PH, Urine 6.5 (5.0-8.0); Protein,Urine Trace (Negative); RBC,Urine 0-2 /HPF (0-2); Specific Gravity,Urine 1.023 (1.001-1.030); Urobilinogen,Urine 0.2 (0.2,1.0); WBC,Urine >100 /HPF (0-5)
[2021-08-16 22:54] LABS: Albumin 4.4 g/dL (3.8-4.9)
== END | disposition home or self-care (01) ==
LOC: LABWHC1 11:06
PROVIDERS: ATTEND Internal Medicine Nephrology
DX: N18.31 Chronic kidney disease, stage 3a (principal); E55.9 Vitamin D deficiency, unspecified; N25.81 Secondary hyperparathyroidism of renal origin; M10.9 Gout, unspecified; N39.0 Urinary tract infection, site not specified; D64.9 Anemia, unspecified; R80.9 Proteinuria, unspecified
CPT/HCPCS: 36415; 80048; 81001; 82040; 82306; 82570; 82728; 83540; 83550; 83735; 83970; 84100; 84156; 84550; 85025

== ENCOUNTER 2021-08-19 07:21 | Day surgery (SDC) | payer MEDICARE, OTHER ==
[2021-07-26 15:30] VITALS: BMI 25.4
--- NOTE | 2021-08-19 01:05 | P.GSHP ---
History of Present Illness H&P Date: 08/19/21 CHIEF COMPLAINT: Right buttock mass HISTORY OF PRESENT ILLNESS: The patient is a 70 year-old female with mass along the right buttock over 3 months which is painful to touch. She presents today for surgical excision. PAST MEDICAL HISTORY: Please see list. PAST SURGICAL HISTORY: Please see list. MEDICATIONS: Please see list. ALLERGIES: Please see list. SOCIAL HISTORY: Please see list. FAMILY HISTORY: No reports of Crohn disease or ulcerative colitis. REVIEW OF ORGAN SYSTEMS: CONSTITUTIONAL: No reports of fevers or chills. GI: Denies any blood in stools or constipation. PHYSICAL EXAM: VITAL SIGNS: Stable Musculoskeletal: No clubbing cyanosis or edema SKIN: Buttock mass 3 cm, right GENERAL: Well developed and in no acute distress. Pleasant. HEENT: No sclera icterus. Extraocular movements grossly intact. Moist buccal mucosa. Head is atraumatic, normocephalic. Hears conversational speech. No nasal drainage. NECK: Supple without lymphadenopathy. No JV distention. CHEST: Non-labored respirations and equal bilateral excursions. CARDIOVASCULAR: Regular rate and rhythm. Palpable 2+ radial pulses. ABDOMEN: Soft. Non-tender. Nondistended. NEUROLOGIC: No focal or lateralizing signs. PSYCH: Appropriate affect. Alert and oriented to person, place and time. ASSESSMENT: 1. Right buttock mass PLAN: 1. Will proceed of excision of subcutaneous tumor along the right buttock 2. DVT prophylaxis. 3. Antibiotic prophylaxis. 4. Time of recovery, at least one week. Past Medical History Past Medical History: GERD/Reflux, Hyperlipidemia, Hypertension, Osteoarthritis (OA), Renal Disease, Thyroid Disorder Additional Past Medical History / Comment(s): varicose veins-had lasering, decreased kidney function, Grave's disease History of Any Multi-Drug Resistant Organisms: None Reported, ESBL Date of last positivie culture/infection: 12/17/17 MDRO Source:: ESBL URINE Past Surgical History: Hysterectomy, Joint Replacement, Orthopedic Surgery Additional Past Surgical History / Comment(s): Knee surgery in 2016, left knee replaced Past Anesthesia/Blood Transfusion Reactions: No Reported Reaction Smoking Status: Current some day smoker - Past Family History Mother Family Medical History: Diabetes Mellitus Additional Family Medical History / Comment(s): Tom's Father Family Medical History: Diabetes Mellitus Additional Family Medical History / Comment(s): heart problems Brother(s) Family Medical History: Cancer Sister(s) Family Medical History: Cancer, Pulmonary Embolus Medications and Allergies Home Medications Medication Instructions Recorded Confirmed Type Jose Razo B.lactis 1 each PO DAILY 11/04/15 08/17/21 History [Probiotic] Levothyroxine Sodium [Levoxyl] 175 mcg PO QAM 11/04/15 08/17/21 History Omeprazole [PriLOSEC] 20 mg PO QAM 11/04/15 08/17/21 History Cholecalciferol (Vitamin D3) 2,000 unit PO QAM 07/02/17 08/17/21 History [Vitamin D3] Losartan Potassium 100 mg PO QAM 08/08/18 08/17/21 History Multivitamins, Thera [Multivitamin 1 tab PO QAM 08/08/18 08/17/21 History (formulary)] Niacin 500 mg PO QAM 08/08/18 08/17/21 History Ubidecarenone [Co Q-10] 200 mg PO QAM 08/08/18 08/17/21 History Acetaminophen [Tylenol Arthritis] 650 mg PO Q6HR PRN 11/18/18 08/17/21 History Atorvastatin [Lipitor] 80 mg PO HS 11/18/18 08/17/21 History Hydrochlorothiazide 12.5 mg PO DAILY 11/18/18 08/17/21 History [hydroCHLOROthiazide] Melatonin 2 mg PO HS PRN 11/18/18 08/17/21 History amLODIPine [Norvasc] 10 mg PO DAILY 11/18/18 08/17/21 History Aspirin [Adult Low Dose Aspirin EC] 81 mg PO DAILY 07/26/21 08/17/21 History Calcium Carbonate/Vitamin D3 1 each PO DAILY 07/26/21 08/17/21 History [Calcium 600 mg-D3 10 Mcg (400 Iu)] Metoprolol Succinate [Toprol XL] 25 mg PO DAILY 07/26/21 08/17/21 History Venlafaxine HCl ER [Effexor Xr] 75 mg PO DAILY 07/26/21 08/17/21 History Allergies Allergy/AdvReac Type Severity Reaction Status Date / Time Sulfa (Sulfonamide Allergy Mild Rash/Hives Verified 08/17/21 15:57 Antibiotics)
[~2021-08-19 07:21] MED LIST changes: -ACETAMINOPHEN TAB 500 MG TAB PO ONE; +ACETAMINOPHEN TAB 500 MG TAB PO PRN; -DEXAMETHASONE SOD PHOSPHATE 10 MG/ML 1 ML VIAL IV ONE; +DEXAMETHASONE SOD PHOSPHATE 4 MG/ML 1 ML VIAL IV ONE; +GABAPENTIN 300 MG CAP PO PRN; +HEPARIN SODIUM,PORCINE/PF 5,000 UNIT/0.5 ML SYRINGE SQ PRN; -HYDROmorphone 0.5 MG/0.5 ML SYRINGE IVP PRN; +MELOXICAM 7.5 MG TAB PO PRN; -MIDAZOLAM 2 MG/2 ML VIAL IV PRN; +Pre Op ABX Message 1 EACH MISC MISCELLANE ONE; -SCOPOLAMINE 1.5MG/72HR PATCH TRANSDERM ONE; -TRANEXAMIC ACID 1,000 MG in SODIUM CHLORIDE 0.9% 100 ML IVPB ONE; -ceFAZolin IN SWFI 2 GM/20 ML SYRINGE IVP ONE
[2021-08-19] MEDS ORDERED: HEPARIN SODIUM,PORCINE/PF 5,000 UNIT/0.5 ML SYRINGE SQ ONE (08:03)
[2021-08-19] MEDS ORDERED: LIDOCAINE 1% INJ 10MG/ML (20 ML MDV) ONE (08:47)
[2021-08-19] MEDS ORDERED: fentaNYL (PF) 50 MCG/ML 2 ML AMP ONE (08:47)
[2021-08-19] MEDS ORDERED: PROPOFOL 10 MG/ML 20 ML VIAL IV ONE (08:47)
[2021-08-19] MEDS ORDERED: MIDAZOLAM 2 MG/2 ML VIAL ONE (08:47)
[2021-08-19] MEDS ORDERED: PHENYLEPHRINE-0.9% NACL SYG 1,000 MCG/10 ML SYRINGE ONE (08:47)
[2021-08-19] MEDS ORDERED: ROCURONIUM 10 MG/ML (5 ML VIAL) IV ONE (08:47)
[2021-08-19] MEDS ORDERED: SUCCINYLCHOLINE CHLORIDE 100 MG/5 ML SYR IV ONE (08:47)
[2021-08-19] MEDS ORDERED: BUPIVACAIN-EPI 0.25%-1:200,000 30 ML VIAL SQ ONE (09:20)
[2021-08-19 09:47] VITALS: TEMP 97
[2021-08-19 09:51] VITALS: RESP 16
--- NOTE | 2021-08-19 09:53 | P.OP ---
Date of Procedure: 08/19/21 Description of Procedure: SURGEON: SHEYLA CAMERON MD ELECTRICAL ENGINEERING DRAFTSPERSON: None. PREOPERATIVE DIAGNOSES: 1. Right upper buttock mass 2. Hypertensive heart disease 3. Depressive disorder 4. Hyperlipidemia 5. Hypothyroidism 6. Gastroesophageal reflux disease POSTOPERATIVE DIAGNOSES: 1. Right upper buttock mass, 6-cm 2. Hypertensive heart disease 3. Depressive disorder 4. Hyperlipidemia 5. Hypothyroidism 6. Gastroesophageal reflux disease PROCEDURES PERFORMED: 1. Excision of deep subcutaneous right buttock tumor, 5-cm 2. Intermediate closure right buttock incision, 6 -cm Anesthesia: GETA, local Estimated Blood Loss (ml): 5 Pathology: 1. Right buttock mass Condition: stable Disposition: Same-day COMPLICATIONS: None. Operative Findings: 1. Subcutaneous tumor right buttock, 5 cm a fatty consistency, lipoma INDICATIONS: The patient is a 70-year-old female who presents over 6 months with increasing pain and tenderness of right lower back, right upper buttock tumor. Benefits and risks of surgical intervention were described including bleeding, infection, seroma, pain, wound dehiscence and recurrence. Informed consent was obtained. DESCRIPTION OR PROCEDURE: Patient was brought into the operating room. After general induction, the patient was positioned in left lateral decubitus. The buttock was draped in a standard sterile fashion with Betadine. Timeout protocol was confirmed with the surgical team regarding the patient's name, procedure to be performed including preoperative medications. DVT prophylaxis was confirmed. A field block was placed with local anesthetic. A 6-cm transverse incision using #15 blade was made along the marking into the dermis and subcutaneous tissue. Electro-Bovie cautery was used to enter deep into the subcutaneous tissue of the right buttock tumor over 5 cm evaginated out of the wound. The tumor was excised in total. 0 Vicryl for the fascia and deep subcutaneous tissue followed 4-0 monocyl along the subcutaneous tissue was performed. Final length incisional closure is 6-cm. The skin was cleansed and Exofin tape with liquid glue was applied for a third layer closure. The incision was covered with Optifoam dressing. At the end of the procedure, needle, sponge, and instrument count was verified correct by surgical services asst. The patient was transferred into the postanesthesia care unit in stable condition. Plan - Discharge Summary Discharge Rx Participant: Yes New Discharge Prescriptions: New Ibuprofen [Motrin] 600 mg PO Q8HR PRN #30 tab PRN Reason: Pain Continue Levothyroxine Sodium [Levoxyl] 175 mcg PO QAM L.acidoph,Paracasei, B.lactis [Probiotic] 1 each PO DAILY Omeprazole [PriLOSEC] 20 mg PO QAM Cholecalciferol (Vitamin D3) [Vitamin D3] 2,000 unit PO QAM Ubidecarenone [Co Q-10] 200 mg PO QAM Niacin 500 mg PO QAM Multivitamins, Thera [Multivitamin (formulary)] 1 tab PO QAM Losartan Potassium 100 mg PO QAM Hydrochlorothiazide [hydroCHLOROthiazide] 12.5 mg PO DAILY Atorvastatin [Lipitor] 80 mg PO HS amLODIPine [Norvasc] 10 mg PO DAILY Acetaminophen [Tylenol Arthritis] 650 mg PO Q6HR PRN PRN Reason: Pain Melatonin 2 mg PO HS PRN PRN Reason: sleep Aspirin [Adult Low Dose Aspirin EC] 81 mg PO DAILY Calcium Carbonate/Vitamin D3 [Calcium 600 mg-D3 10 Mcg (400 Iu)] 1 each PO DAILY Metoprolol Succinate [Toprol XL] 25 mg PO DAILY Venlafaxine HCl ER [Effexor XR] 75 mg PO DAILY Discharge Medication List L.acidoph,Paracasei, B.lactis [Probiotic] 1 each PO DAILY 11/04/15 [History] Levothyroxine Sodium [Levoxyl] 175 mcg PO QAM 11/04/15 [History] Omeprazole [PriLOSEC] 20 mg PO QAM 11/04/15 [History] Cholecalciferol (Vitamin D3) [Vitamin D3] 2,000 unit PO QAM 07/02/17 [History] Losartan Potassium 100 mg PO QAM 08/08/18 [History] Multivitamins, Thera [Multivitamin (formulary)] 1 tab PO QAM 08/08/18 [History] Niacin 500 mg PO QAM 08/08/18 [History] Ubidecarenone [Co Q-10] 200 mg PO QAM 08/08/18 [History] Acetaminophen [Tylenol Arthritis] 650 mg PO Q6HR PRN 11/18/18 [History] Atorvastatin [Lipitor] 80 mg PO HS 11/18/18 [History] Hydrochlorothiazide [hydroCHLOROthiazide] 12.5 mg PO DAILY 11/18/18 [History] Melatonin 2 mg PO HS PRN 11/18/18 [History] amLODIPine [Norvasc] 10 mg PO DAILY 11/18/18 [History] Aspirin [Adult Low Dose Aspirin EC] 81 mg PO DAILY 07/26/21 [History] Calcium Carbonate/Vitamin D3 [Calcium 600 mg-D3 10 Mcg (400 Iu)] 1 each PO DAILY 07/26/21 [History] Metoprolol Succinate [Toprol XL] 25 mg PO DAILY 07/26/21 [History] Venlafaxine HCl ER [Effexor XR] 75 mg PO DAILY 07/26/21 [History] Ibuprofen [Motrin] 600 mg PO Q8HR PRN #30 tab 08/19/21 [Rx] Follow up Appointment(s)/Referral(s): Sheyla Cameron MD [STAFF PHYSICIAN] - 08/25/21 Patient Instructions/Handouts: *[facility] - Managing Your Pain After Surgery Without Opioids, Excision of Skin Lesion (GEN) Activity/Diet/Wound Care/Special Instructions: NO EXTREME STRETCHING OF THE BACK See instructions on dressing. DO NOT REMOVE DRESSING. No lifting over 10 pounds in 2 weeks, September 02October shower. No bath tub soaks for two weeks, September 02 Diet as tolerated. Discharge Disposition: HOME SELF-CARE
[2021-08-19 10:57] VITALS: BP 116/65; PULSE 82
== END 2021-08-19 11:22 | disposition home or self-care (01) ==
LOC: OR 07:21
PROVIDERS: ATTEND Surgery Plastic and Reconstructive Surgery
DX: D17.1 Benign lipomatous neoplasm of skin and subcutaneous tissue of trunk (principal); K21.9 Gastro-esophageal reflux disease without esophagitis; E78.5 Hyperlipidemia, unspecified; I10 Essential (primary) hypertension; M19.90 Unspecified osteoarthritis, unspecified site; E07.9 Disorder of thyroid, unspecified; I83.90 Asymptomatic varicose veins of unspecified lower extremity; Z86.19 Personal history of other infectious and parasitic diseases; F41.9 Anxiety disorder, unspecified; I12.9 Hypertensive chronic kidney disease with stage 1 through stage 4 chronic kidney disease, or unspecified chronic kidney disease; E11.22 Type 2 diabetes mellitus with diabetic chronic kidney disease; N18.9 Chronic kidney disease, unspecified; F32.A Depression, unspecified; F17.210 Nicotine dependence, cigarettes, uncomplicated; Z90.710 Acquired absence of both cervix and uterus; Z96.60 Presence of unspecified orthopedic joint implant; Z96.698 Presence of other orthopedic joint implants; Z98.890 Other specified postprocedural states; Z83.6 Family history of other diseases of the respiratory system; Z80.9 Family history of malignant neoplasm, unspecified; Z79.82 Long term (current) use of aspirin; Z79.890 Hormone replacement therapy; Z79.899 Other long term (current) drug therapy; Z88.2 Allergy status to sulfonamides
CPT/HCPCS: 88304; 21936; J2250; J1100; J0690; J2405; J2001; J3010; J2370; J0330; J2704; J1644

== ENCOUNTER → 2021-11-17 | Outpatient (CLI) | payer MEDICARE, OTHER ==
--- NOTE | 2021-11-17 16:44 | BD ---
EXAMINATION TYPE: Axial Bone Density DATE OF EXAM: 11/17/2021 COMPARISON: 08.08.2013 CLINICAL HISTORY: 71 years year old Female. ICD-10 CODE: M85.80DISORDER OF BONE DENSITY Height: 63.9 Weight: 155 FRAX RISK QUESTIONS: Family History (Parent hip fracture): YES History of Fracture in Adulthood: YES Current Tobacco Use: YES RISK FACTORS HISTORY OF: HX OF TOE FXs Surgery to Spine...SOFT TISSUE MASS REMOVED ONLY FROM SPINE...2020, TOTAL LT KNEE Family History of Osteoporosis: YES, MOTHER WITH HIP FX Postmenopausal woman: YES, AT 48 Lost more than 2 inches in height since high school: YES Hyperparathyroidism: NO Adrenal Insufficiency: NO MEDICATIONS: Thyroid Medications: YES, SYNTHROID, FOR ABOUT 25YRS Additional Medications: BP MEDS, ANTI ANXIETY/DEPRESSION MEDS, REFLUX MEDS, STATIN FOR CHOLESTEROL, V IT D AND CALCIUM. Additional History: HYPERTENSION, DEPRESSION, REFLUX, CHOLESTEROL, ARTHRITIS, THYROID, HX OF TOTAL KN EE REPLACEMENT EXAM MEASUREMENTS: Bone mineral densitometry was performed using the [employer] System. Bone mineral density as measured about the Lumbar spine is: ----- L1-L4(G/cm2): 1.259 T Score Values are as follows: ----- L1: 0.8 ----- L2: 0.3 ----- L3: 0.9 ----- L4: 0.5 ----- L1-L4: 0.7 Bone mineral density has: Increased 5.9% since study of: 08.08.2013 Bone mineral density about the R hip (g/cm2): 0.772 Bone mineral density about the L hip (g/cm2): 0.773 T Score values are as follows: -----R Neck: -2.5 -----L Neck: -2.4 -----R Total: -1.9 -----L Total: -1.9 Bone mineral density has: Decreased -12.2% since study of: 08.08.2013 FRAX%s: The graph provided illustrates a 23.2% chance for a major osteoporotic fx and a 17.8% chance for the hips probability for fx in 10 years time. IMPRESSION: Osteopenia (T Score between -2.5 and -1). There is slightly increased risk of fracture and the patient may be considered for treatment. Re-Screen 2-5 years. NOTE: T-SCORE=SD OF THE YOUNG ADULT MEAN.
--- NOTE | 2021-11-19 14:36 | MM ---
Reason for Exam: Screening (asymptomatic). Last mammogram was performed 1 year(s) and 1 month(s) ago. Patient History: Menarche at age 11. First Full-Term at age 19. Hysterectomy at age 48. Postmenopausal. Estrogen, starting at age 66. Progesterone for 8 years from age 38 until age 46. Patient used Hormonal Contraceptives for 1 year. 2005, Benign Excisional Biopsy on the right side. 01/01/2018, Benign Core Biopsy on the right side. 07/06/2017, Benign Core Biopsy on the left side. 07/05/2017, Benign Core Biopsy on the right side. 07/06/2017, US discontinued breast bx RT on the right side. Maternal aunt had breast cancer. Maternal aunt had breast cancer. Sister had breast cancer, age 50. Risk Values: Vivian 5 year model risk: 5.0%. NCI Lifetime model risk: 12.0%. Prior Study Comparison: 07/30/2018 Bilateral Diagnostic Mammogram, [facility]. 08/04/2019 Bilateral Screening Mammogram, [facility]. 10/12/2020 Bilateral Screening Mammogram, [facility]. Tissue Density: The breast tissue is heterogeneously dense. This may lower the sensitivity of mammography. Findings: Analyzed By CAD. A microclip on each side from prior biopsies. A few scattered benign round and oil cyst calcifications. There is chronic nodularity on both sides. No significant change from prior exams. Overall Assessment: Benign, BI-RAD 2 Management: Screening Mammogram of both breasts in 1 year. A clinical breast exam by your physician is recommended on an annual basis and results should be correlated with mammographic findings. Also, the patient should continue monthly self breast exams. Electronically signed and approved by: Mishel Bertrand M.D. Radiologist
== END | disposition home or self-care (01) ==
LOC: RADMAMWWP 08:22
PROVIDERS: ATTEND Family Medicine
DX: Z12.31 Encounter for screening mammogram for malignant neoplasm of breast (principal); M85.80 Other specified disorders of bone density and structure, unspecified site
CPT/HCPCS: 77063; 77067; 77080

== ENCOUNTER → 2022-02-15 | Outpatient (CLI) | payer MEDICARE ==
[2022-02-15 11:16] LABS: Appearance,Urine Cloudy (Clear); Bacteria,Urine Many /hpf; Bilirubin,Urine Negative (Negative); Blood,Urine Negative (Negative); Color,Urine Yellow; Glucose,Urine (UA) Negative (Negative); Ketones,Urine Negative (Negative); Leukocyte Esterase,Urine Large (Negative); Mucus,Urine Rare /hpf; Nitrite,Urine Positive (Negative); Protein,Urine Negative (Negative); Specific Gravity,Urine 1.013 (1.001-1.035); Squamous Epithelial Cell,Urine 1 /hpf (0-4); Urobilinogen,Urine <2.0 mg/dL (<2.0); WBC,Urine 154 /hpf (0-5)
[2022-02-15 13:37] LABS: Creatinine,Urine Random 92.2 mg/dL; Protein/Creatinine Ratio,Urine 0.076
[2022-02-15 14:14] LABS: Basophils # (A) 0.06 X 10*3/uL (0.00-0.10); Basophils % (A) 0.7 %; Eosinophils # (A) 0.01 X 10*3/uL (0.04-0.35); Eosinophils % (A) 0.1 %; HGB 14.2 g/dL (12.0-15.0); Immature Grans, Automated 0.3 %; Lymphocytes # (A) 1.61 X 10*3/uL (0.90-5.00); Lymphocytes % (A) 18.2 %; MCH 30.8 pg (27.0-32.0); MCHC 33.8 g/dL (32.0-37.0); MCV 91.1 fL (80.0-97.0); Monocytes # (A) 0.94 X 10*3/uL (0.20-1.00); Monocytes % (A) 10.6 %; NRBC Per 100 WBC 0 /100 WBCS (0.0-0.0); Neutrophils # (A) 6.21 X 10*3/uL (1.80-7.70); Neutrophils % (A) 70.1 %; Platelet Count 276 X 10*3/uL (140-440); RBC 4.61 X 10*6/uL (4.10-5.20); RDW 13.4 % (11.5-14.5); WBC 8.86 X 10*3/uL (4.50-10.00)
[2022-02-15 14:22] LABS: % Iron Saturation 22.34 (12.00-45.00); African American GFR (CKD) 59.6 (60.0-200.0); Anion Gap 10.6 mmol/L (10.00-18.00); BUN/Creat Ratio 14.58 Ratio (12.00-20.00); Blood Urea Nitrogen 15.6 mg/dL (9.0-27.0); Calcium 9.5 mg/dL (8.7-10.3); Carbon Dioxide 26.6 mmol/L (20.0-27.5); Magnesium 2.1 mg/dL (1.5-2.4); Non-African American GFR(CKD) 51.5 (60.0-200.0); Phosphorus 2.4 mg/dL (2.4-5.1); Potassium 4.5 mmol/L (3.5-5.5); Uric Acid 5.6 mg/dL (2.9-7.7)
[2022-02-15 14:42] LABS: Albumin 4.4 g/dL (3.8-4.9)
== END | disposition home or self-care (01) ==
LOC: LABWHC1 09:33
PROVIDERS: ATTEND Nurse Practitioner Family
DX: N18.31 Chronic kidney disease, stage 3a (principal); E55.9 Vitamin D deficiency, unspecified; E21.3 Hyperparathyroidism, unspecified; M10.9 Gout, unspecified; N39.0 Urinary tract infection, site not specified; D64.9 Anemia, unspecified; R80.9 Proteinuria, unspecified
CPT/HCPCS: 36415; 80048; 81001; 82040; 82306; 82570; 82728; 83540; 83550; 83735; 83970; 84100; 84156; 84550; 85025; 87086